=== PATIENT | female | born 1960 | race Caucasian/White ===

== ENCOUNTER → 2016-06-06 | Outpatient (CLI) | payer OTHER | END | disposition home or self-care (01) | LOC: PROCWHC3 11:12 | PROVIDERS: ATTEND Nurse Practitioner Family | DX: R50.9 Fever, unspecified (principal); R09.89 Other specified symptoms and signs involving the circulatory and respiratory systems | CPT/HCPCS: 87502 ==

== ENCOUNTER → 2016-08-14 | Outpatient (CLI) | payer OTHER ==
--- NOTE | 2016-08-15 10:30 | MM ---
Reason for exam: screening (asymptomatic). Last mammogram was performed 2 years and 1 month ago. Physical Findings: A clinical breast exam by your physician is recommended on an annual basis and results should be correlated with mammographic findings. MG Screening Mammo w CAD Bilateral CC and MLO view(s) were taken. Prior study comparison: July 05, 2014, mammogram, performed at [facility]. July 18, 2012, mammogram, performed at [facility]. There are scattered fibroglandular densities. Finding: There are typically benign round calcifications in the left breast. There is no discrete abnormality. ASSESSMENT: Benign, BI-RAD 2 RECOMMENDATION: Routine screening mammogram of both breasts in 1 year.
== END | disposition home or self-care (01) ==
LOC: RADMAMWWP 12:22
PROVIDERS: ATTEND Family Medicine
DX: Z12.31 Encounter for screening mammogram for malignant neoplasm of breast (principal)

== ENCOUNTER → 2017-09-30 | Outpatient (CLI) | payer OTHER ==
--- NOTE | 2017-10-01 13:54 | MM ---
Reason for exam: screening (asymptomatic). Last mammogram was performed 1 year and 2 months ago. Physical Findings: A clinical breast exam by your physician is recommended on an annual basis and results should be correlated with mammographic findings. MG Screening Mammo w CAD Bilateral CC and MLO view(s) were taken. Prior study comparison: August 14, 2016, bilateral MG screening mammo w CAD. July 05, 2014, mammogram, performed at [facility]. No significant changes when compared with prior studies. ASSESSMENT: Benign, BI-RAD 2 RECOMMENDATION: Routine screening mammogram of both breasts in 1 year.
== END | disposition home or self-care (01) ==
LOC: RADMAMWWP 14:53
PROVIDERS: ATTEND Family Medicine
DX: Z12.31 Encounter for screening mammogram for malignant neoplasm of breast (principal)
CPT/HCPCS: 77067

== ENCOUNTER → 2018-10-01 | Outpatient (CLI) | payer OTHER ==
--- NOTE | 2018-10-02 11:33 | MM ---
Reason for exam: screening (asymptomatic). Last mammogram was performed 1 year ago. History: Patient is postmenopausal. Physical Findings: A clinical breast exam by your physician is recommended on an annual basis and results should be correlated with mammographic findings. MG Screening Mammo w CAD Bilateral CC and MLO view(s) were taken. Prior study comparison: September 30, 2017, bilateral MG screening mammo w CAD. August 14, 2016, bilateral MG screening mammo w CAD. There are scattered fibroglandular densities. There are being appearing left calcifications similar to prior exams. No suspicious abnormality. No significant changes when compared with prior studies. ASSESSMENT: Benign, BI-RAD 2 RECOMMENDATION: Routine screening mammogram of both breasts in 1 year.
== END | disposition home or self-care (01) ==
LOC: RADMAMWWP 08:05
PROVIDERS: ATTEND Family Medicine
DX: Z12.31 Encounter for screening mammogram for malignant neoplasm of breast (principal)
CPT/HCPCS: 77067

== ENCOUNTER → 2022-10-26 | Outpatient (CLI) | payer OTHER ==
--- NOTE | 2022-10-26 14:49 | PE ---
EXAMINATION TYPE: PET CT fusion skull to thigh DATE OF EXAM: 10/26/2022 COMPARISON: Outside Chest CT August 15, 2022 HISTORY: Solitary pulmonary nodule, abnormal outside CT TECHNIQUE: Following the intravenous administration of 11.3 mCi of F-18 FDG, whole body images are p erformed from the skull base to the midthigh. Images are reviewed on the computer in the coronal, ax ial, and sagittal planes. Reconstructed rotating images are created on independent workstation and r eviewed on the computer. A localization and attenuation correction CT is performed in conjunction w ith the PET scan. Blood glucose level was 205. SCAN: Initial Scan FINDINGS: Slightly suboptimal study due to elevated blood glucose value. SKULL BASE AND NECK: No areas of abnormal hypermetabolic uptake. CHEST, MEDIASTINUM, AND HILAR REGION: Persistent right upper lung pulmonary nodule measuring 1.9 x 1. 8 cm axial image 57 with adjacent posterior pleural smaller nodule or nodular thickening shows mild h ypermetabolic uptake, max SUV is 3.09. Slightly prominent 1.8 x 1.3 cm subcarinal lymph node axial image 72 shows no abnormal hypermetabolic uptake. Chronic consolidation/atelectasis in the lingula is redemonstrated. No additional areas of a bnormal hypermetabolic uptake noted. ABDOMEN AND PELVIS: No hypermetabolic adrenal masses. Normal excretion. No areas of abnormal hypermet abolic uptake. OSSEOUS STRUCTURES: No areas of abnormal hypermetabolic uptake. OTHER CT: Prominent pulmonary arteries suggesting underlying pulmonary artery hypertension. Ordinary artery calcification is redemonstrated which is noted marker for underlying coronary artery disease. Cholecystectomy clips are redemonstrated. A few distal colonic diverticula are seen. Small Uterine fi broid suspected axial image 191. IMPRESSION: Mild hypermetabolic uptake in the 1.9 cm right upper lobe pulmonary nodule could reflect neoplasm. No hypermetabolic adenopathy or metastatic disease seen. Consider tissue sampling and/or [place] rgical referral.
== END | disposition home or self-care (01) ==
LOC: RADPETMAIN 07:15
PROVIDERS: ATTEND Internal Medicine Critical Care Medicine
DX: R91.1 Solitary pulmonary nodule (principal)
CPT/HCPCS: 78815; A9552

== ENCOUNTER 2022-11-08 12:49 | Day surgery (SDC) | payer OTHER ==
[~2022-11-08 12:49] MED LIST: LACTATED RINGERS 1,000 ML IV SCH
--- NOTE | 2022-11-08 13:23 | CT ---
EXAMINATION TYPE: CT chest wo con DATE OF EXAM: 11/08/2022 COMPARISON: 10/26/2022, 08/15/2022 HISTORY: Ion bronchoscopy. CT DLP: 895.3 mGycm. Automated Exposure Control for Dose Reduction was Utilized. TECHNIQUE: CT scan of the thorax is performed without IV contrast. FINDINGS: LUNGS: The lungs are grossly clear, there is no concerning consolidative pneumonia identified. Ther e is no pleural effusion or pneumothorax seen. The tracheobronchial tree is patent. There is a spiculated suspicious mass right upper lobe measuring 1.9 x 1.5 cm. Diffuse centrilobular emphysema noted. There is areas of subsegmental consolidation in the anterior portion of the lingular segment left upper lobe may be on the basis of atelectasis correlate clinically to exclude a pneumon ia. There is a 2 mm nodule axial image 144 series 4. There is mild left basilar bronchiectasis. No sizabl e pleural effusion or pneumothorax. MEDIASTINUM: Lack of IV contrast is noted to limit evaluation for mediastinal and especially hilar ad enopathy. There are no definitive greater than 1 cm hilar or mediastinal lymph nodes. Less than 1 cm lymph nodes are seen along the left axilla and lateral margin of the left breast. These are stable r elative to recent PET scan. There is a trace of pericardial fluid and there is pericardial lipomatosi s. Coronary artery dense calcification seen. Atherosclerotic change of the aorta with no evidence of aneurysm. OTHER: There is hypertrophic and degenerative changes of spine. Stable hepatomegaly and postcholecyst ectomy changes. Mild thickening of left adrenal gland is unchanged.. IMPRESSION: 1. Spiculated suspicious 1.9 x 1.5 cm nodule right upper lobe is stable relative to recent PET scan. 2. Diffuse centrilobular emphysema. 3. Stable consolidation in the left upper lobe unchanged most likely on the basis of chronic atelecta sis.
[2022-11-08] MEDS ORDERED: NEOSTIGMINE 1 MG/ML 10 ML VIAL ONE (14:30)
[2022-11-08] MEDS ORDERED: SUCCINYLCHOLINE CHLORIDE 200 MG/10 ML VIAL IV ONE (14:30)
[2022-11-08] MEDS ORDERED: ROCURONIUM 10 MG/ML (5 ML VIAL) IV ONE (14:30)
[2022-11-08] MEDS ORDERED: GLYCOPYRROLATE 0.2 MG/ML 2 ML VIAL ONE (14:30)
[2022-11-08] MEDS ORDERED: fentaNYL (PF) 50 MCG/ML 2 ML AMP ONE (14:30)
[2022-11-08] MEDS ORDERED: PHENYLEPHRINE-0.9% NACL SYG 1,000 MCG/10 ML SYRINGE ONE (14:30)
[2022-11-08] MEDS ORDERED: LIDOCAINE 2% INJ 20 MG/ML (2 ML VIAL) ONE (14:30)
[2022-11-08] MEDS ORDERED: PROPOFOL 10 MG/ML 20 ML VIAL IV ONE (14:30)
[2022-11-08] MEDS ORDERED: MIDAZOLAM 2 MG/2 ML VIAL ONE (14:30)
[2022-11-08] MEDS ORDERED: SODIUM CHLORIDE 0.9% 500 ML 500 ML IV ONE ×2 (15:45)
[2022-11-08 16:21] VITALS: TEMP 97.3
--- NOTE | 2022-11-08 16:26 | P.PCN ---
Date of Procedure: 11/08/22 Operative Findings: Date of Procedure: 11/08/22 Description of Procedure: Preoperative Diagnosis: Right upper lobe mass Postoperative Diagnosis: Right upper lobe mass Procedure(s) Performed: Flexible bronchoscopy Robotic-assisted bronchoscopy and addition to radial ultrasound evaluation of the lung mass Robotic-assisted test monitor needle aspirate, transbronchial biopsies, transbronchial brushing of the right upper lobe mass in addition to a bronchioloalveolar lavage Anesthesia: ASHLYA Surgeon: Iraida Reza Estimated Blood Loss (ml): 0 Pathology: other Condition: stable Disposition: same day Operative Findings: A physical exam was performed. Informed consent was obtained from the patient after explaining all the risks (pneumothorax, life threatening bleeding, infection and adverse effects due to medications), benefits and alternatives to the procedure which the patient appeared to understand and so stated. The patient was connected to the monitoring devices. General anesthesia was induced and the patient was intubated by anesthesia. A final timeout was performed and the procedure confirmed by the attending staff bronchoscopist. The bronchoscope was inserted and the airway examined. The flexible bronchoscope was removed and the robotic bronchoscope was inserted. Registration was completed. I next guided the robotic bronchoscope using the navigation system into the right upper lobe apical segment. Once in proper position, the bronchoscope was frozen. The radial EBUS probe was placed through the bronchoscope and confirmed abnormal u/s images vs normal lung. A needle was placed through the working channel and under fluoroscopic guidance, we sampled the area thought to have the mass twice. We then used a cloud biopsy pattern with ultrasound confirmation for 2 additional passes with the needle. U/S evaluation was then used to reconfirm location. Forceps were next introduced through working channel and extended the appropriate distance and 3 transbronchial biopsies were performed using fluoroscopic guidance. The u/s probe was then reinserted to confirm location. When confirmed this process was repeated for a total of 6 transbronchial biopsies. After reassessment with EBUS, a brush was placed through the extendable working channel for 1 pass with fluoroscopic guidance. U/S evaluation was then used to confirm location. 40ml of saline was then instilled into the area of the lesion. The robotic bronchoscope was removed and the airway inspected with a flexible bronchoscope and 10 ml of effluent from the BAL was collected. The aspirate was bloody and ultimately declotted and based on that, the sample was discarded. Fluoroscopic check for pneumothorax was negative upon completion of the procedure. There was 0 ml blood loss with the procedure. FINDINGS: 1.The airways appeared normal 2 Successful navigation, ultrasonographic identification, and biopsies of right upper lobe mass 3.The the radial ultrasound view was (Concentric/Eccentric)}. RECOMMENDATIONS: Await pathology and cytology results The referring physician will be alerted to the results when available. The patient was advised to follow up with the referring physician with the biopsy results Patient will be called with results.
[2022-11-08 16:31] LABS: Glucose,Whole Blood 146 mg/dL (70-110)
--- NOTE | 2022-11-08 17:06 | XR ---
EXAMINATION: XR chest 1V portable DATE AND TIME: 11/08/2022 4:38 PM CLINICAL INDICATION: Ion Bronch post op TECHNIQUE: Portable AP semiupright radiograph COMPARISON: CT 11/08/2022 at 12:55 PM FINDINGS: The known right apical spiculated mass is redemonstrated. There are scattered ill-defined opacities t hroughout the lungs, nonspecific. There is no pneumothorax. Pleural-parenchymal left anterior lateral hemithorax changes redemonstrated . No evident pleural effusions. The cardiac silhouette is enlarged, stable. The skeletal structures and soft tissues are negative for acute findings. IMPRESSION: Post bronchoscopy; upright AP portable chest radiograph.
--- NOTE | 2022-11-08 17:29 | FL ---
EXAMINATION TYPE: FL bronchoscopy DATE OF EXAM: 11/08/2022 COMPARISON: NONE HISTORY: 62-year-old female solitary pulmonary nodule TECHNIQUE: Procedural fluoroscopy FINDINGS: Fluoroscopic guidance was provided during procedure performed by Dr. Reza. A total of 7 minutes 37 seconds of fluoroscopic time was utilized during the procedure and 1 spot images was ac quired. Total dose area product (DAP) in uGy*m?, mGy*cm? (or similar): 17.4. IMPRESSION: As Above.
[2022-11-08 17:51] VITALS: BP 142/86; PULSE 94; RESP 20
[2022-11-09 10:27] LABS: Glucose,Whole Blood 158 mg/dL (70-110)
== END 2022-11-08 17:53 | disposition home or self-care (01) ==
LOC: ORWHC2ENDO 12:49
PROVIDERS: ATTEND Internal Medicine Critical Care Medicine
DX: C34.11 Malignant neoplasm of upper lobe, right bronchus or lung (principal); J44.9 Chronic obstructive pulmonary disease, unspecified; E78.5 Hyperlipidemia, unspecified; F41.9 Anxiety disorder, unspecified; E11.9 Type 2 diabetes mellitus without complications; K21.9 Gastro-esophageal reflux disease without esophagitis; Z98.890 Other specified postprocedural states; Z79.899 Other long term (current) drug therapy
CPT/HCPCS: 31628; 88108; 88305; 88342; 88341; 71045; 71250; 31625; 31633; 31623; 31624; J2250; J0330; J2710; J3010; J2370; J2704; J2001; S2900

== ENCOUNTER 2022-11-22 05:35 | Inpatient (IN) | payer OTHER ==
[2022-11-22] MEDS ORDERED: ONDANSETRON 4 MG/2 ML VIAL ONE (06:20)
[2022-11-22] MEDS ORDERED: LACTATED RINGERS 1,000 ML IV ONE ×3 (06:20→09:03)
[2022-11-22] MEDS ORDERED: LIDOCAINE 1% (10MG/ML) FOR IV START INTRADERMA ONE ×2 (06:20→06:30)
[2022-11-22 06:29] LABS: Glucose,Whole Blood 180 mg/dL (70-110)
[2022-11-22] MEDS ORDERED: ONDANSETRON 4 MG/2 ML VIAL IVP ONE (06:30)
[2022-11-22] MEDS ORDERED: ALBUTEROL HFA INHALER INHALATION ONE (08:00)
[2022-11-22] MEDS ORDERED: fentaNYL (PF) 50 MCG/ML 2 ML AMP ONE (08:00)
[2022-11-22] MEDS ORDERED: NEOSTIGMINE 1 MG/ML 10 ML VIAL ONE (08:00)
[2022-11-22] MEDS ORDERED: SUCCINYLCHOLINE CHLORIDE 200 MG/10 ML VIAL IV ONE (08:00)
[2022-11-22] MEDS ORDERED: ROCURONIUM 10 MG/ML (5 ML VIAL) IV ONE (08:00)
[2022-11-22] MEDS ORDERED: HYDROmorphone (PF) 1 MG/ML ONE (08:00)
[2022-11-22] MEDS ORDERED: MIDAZOLAM 2 MG/2 ML VIAL ONE (08:00)
[2022-11-22] MEDS ORDERED: PROPOFOL 10 MG/ML 20 ML VIAL IV ONE (08:00)
[2022-11-22] MEDS ORDERED: LIDOCAINE 2% INJ 20 MG/ML (2 ML VIAL) ONE (08:00)
[2022-11-22] MEDS ORDERED: GLYCOPYRROLATE 0.2 MG/ML 2 ML VIAL ONE (08:00)
[2022-11-22] MEDS ORDERED: KETAMINE 10 MG/ML 20 ML VIAL ONE (08:00)
[2022-11-22] MEDS ORDERED: BUPIVACAINE (PF) 0.5% 30 ML VIAL SQ ONE ×2 (09:00→10:55)
[2022-11-22] MEDS ORDERED: DEXTROSE 50% SYRINGE 50 ML IVP PRN ×2 (11:03)
[2022-11-22 11:38] LABS: Glucose,Whole Blood 255 mg/dL (70-110)
[2022-11-22] MEDS ORDERED: INSULIN ASPART (NovoLOG) 100 UNIT/ML VIAL SQ ONE (11:58)
[2022-11-22] MEDS ORDERED: HYDROmorphone 0.5 MG/0.5 ML SYRINGE IVP ONE (12:08)
--- NOTE | 2022-11-22 12:31 | P.OP ---
Date of Procedure: 11/22/22 Preoperative Diagnosis: Lung Cancer Postoperative Diagnosis: Same Procedure(s) Performed: 1. Bronchoscopy 2. Right robotic assisted thorascopic surgery with wedge resection of right upper lobe mass 3. Mediastinal lymph node dissection 4. Intercostal nerve block - 2 levels. Anesthesia: GETA Surgeon: Robert Blas Pathology: other (RUL wedge, Stations 4R, 7 and 8R.) Condition: stable Disposition: PACU Indications for Procedure: This patient is a 62 year-old female who is an active smoker who was found to have a 1.9cm RUL mass on a CT scan of the chest that was done for bronchitis. Further work-up including biopsy of the mass revealed NSCLC. EBUS was attempted but no discernable nodes were found for biopsy. However, given her very borderline PFT's and smoking status, sub-lobar resection with MLND was recommended. Operative Findings: Thickened fibrotic right lung. + palpable mass in wedge resection specimen. Description of Procedure: The patient underwent arterial line in the pre-operative suite. She was brought back to the operating room and placed in the supine position. She underwent general anesthesia and she was intubated with a left sided PREMA. Bronchoscopy was performed to confirm tube placement and for diagnostic purposes. Evaluation of the airway revealed moderate secretions without any luminal irregularities bilaterally. The patient was then positioned in the the left lateral decubitus position and the right lung was isolated. The right chest was prepped and draped in the usual sterile fashion. I made an 8cm incision in the mid-axillary line 9th ICS. The 8mm robotic trocar was inserted and entry into the chest cavity was confirmed. The right thorax was insufflated to 10mm hg and two additional 12mm ports were placed in the 9 ICS 10cm away from the first port. Lastly another 8mm port was placed in the 8th ICS posteriorly. Intercostal rib block was performed under vision in both of these spaces. The right lung was heavily diseased and the mass was easily identified at the apex. The [employer] robot was docked. I began by taking down the inferior pulmonary ligament using bipolar cautery. This was carried posteriorly along the mediastinal pleura. Level 7 and 8 nodes were harvested here. Next the space above the azygous vein was opened and level 4R lymph node was harvested. There were no discernable level 9 or 10 nodes. Next the robotic green load was used on the stapler to start the apical wedge resection. At attempt was made to continue the wedge with a black load on the robotic stapler however the lung tissue was too thick to fire despite pre-conditioning with a lung clamp. At this time, the robot was un-docked and the wedge was completed using an endo-SHANNA stapler using serial firings of the re-inforced black loads. The specimen was placed in a retrieval bag and the removed. The right chest was irrigated and the right lung was re-inflated after a 28F chest tube was inserted via the anterior most incision. All incisions were closed in layers of vicryl and the patient was extubated.
--- NOTE | 2022-11-22 12:32 | XR ---
EXAMINATION TYPE: XR chest 1V portable DATE OF EXAM: 11/22/2022 Comparison: 11/08/2022 Clinical History: 62-year-old female post wedge resection Findings: Right-sided apically directed chest tube is noted. Some subcutaneous emphysema extends along the righ t chest wall. No appreciable pneumothorax. Heart remains borderline enlarged. Right paratracheal soft tissue prominence is unchanged. Ongoing pleural parenchymal opacity along the periphery of the left mid and lower lung. Some increased opacity at the periphery of the right base. Impression: Portable exam further limited by large patient body habitus. There is a right-sided chest tube. No ap preciable pneumothorax. 2. Similar right paratracheal soft tissue prominence likely in part projectional. 3. Peripheral and bibasilar opacities probably atelectasis and can be followed.
[2022-11-22] MEDS ORDERED: IPRATROPIUM-ALBUTEROL 3 ML NEB IH PRN (12:54)
[2022-11-22] MEDS ORDERED: traMADol 50 MG TAB PO PRN (12:54)
[2022-11-22] MEDS ORDERED: FLUTICASONE 50MCG/SPRAY NASAL 16GM EA NOSTRIL PRN (12:54)
[2022-11-22] MEDS ORDERED: FUROSEMIDE 10 MG/ML 4 ML VIAL IV STA (12:54)
[2022-11-22] MEDS ORDERED: ONDANSETRON 4 MG/2 ML VIAL IVP PRN (12:54)
[2022-11-22] MEDS ORDERED: LORazepam 1 MG TAB PO PRN (12:54)
[2022-11-22] MEDS ORDERED: ERGOCALCIFEROL 1,250 MCG (50,000 IU) CAPSULE PO SCH (13:00)
[2022-11-22] MEDS ORDERED: FUROSEMIDE 10 MG/ML 4 ML VIAL IV ONE (13:11)
[2022-11-22] MEDS: INSULIN ASPART (NovoLOG) 100 UNIT/ML VIAL SQ SCH ×3 (14:45→20:32)
[2022-11-22] MEDS: KETOROLAC 15 MG/ML 1 ML VIAL IVP SCH ×3 (14:46→23:42)
[2022-11-22] MEDS: IPRATROPIUM-ALBUTEROL 3 ML NEB IH SCH ×3 (14:46→21:31)
--- NOTE | 2022-11-22 15:11 | P.CNPUL ---
History of Present Illness Consult date: 11/22/22 Requesting physician: Robert Blas Reason for consult: lung mass Chief complaint: Right upper lobe mass History of present illness: This is a 62-year-old female patient with a known history of obesity, hypertension, hyperlipidemia, diabetes mellitus, anxiety, chronic obstructive pulmonary disease with an FEV1 value 50% of predicted, chronic and ongoing tobacco dependence of 50 years. She was noted to have a solitary pulmonary nodule measuring 1.9 x 1.3 cm in the right upper lobe. PET scan from 10/26/2022 revealed mild hypermetabolic uptake in the right upper lobe nodule. She did undergo bronchoscopy with biopsies on 11/08/2022 that was positive for pulmonary adenocarcinoma. She was brought in electively today 11/22/2022 for a right upper lobe wedge biopsy. She is seen on the selective care unit and consultation. She is resting comfortably in bed. Awake and alert in no acute distress. Currently maintaining O2 saturations in the 90s on 4 L/m per nasal cannula. She's afebrile. Hemodynamically stable. chest x-ray reveals right-sided chest tube in place. No appreciable pneumothorax. Peripheral and bibasilar opacities suggestive of atelectasis. Blood sugar 255. She's been initiated and DuoNeb inhalations, Singulair, cefazolin. Heparin for DVT prophylaxis. Review of Systems REVIEW OF SYSTEMS: CONSTITUTIONAL: Denies any recent significant weight loss or weight gain. EYES: Denies change in vision. EARS, NOSE, MOUTH, THROAT: Denies headaches, denies sore throat. CARDIOVASCULAR: Denies chest pain, palpitations or syncopal episodes. RESPIRATORY: Denies shortness of breath, cough, congestion or hemoptysis. GASTROINTESTINAL: Denies change in appetite, denies abdominal pain GENITOURINARY: Denies hematuria, denies infections. MUSKULOSKELETAL: Postoperative right-sided chest wall pain. INTEGUMENTARY: Denies rash, denies eczema. NEUROLOGICAL: Denies recent memory loss, no recent seizure activity. PSYCHIATRIC: Denies anxiety, denies depression. HEMATOLOGIC/LYMPHATIC: Denies anemia, denies enlarged lymph nodes. Past Medical History Past Medical History: Cancer, COPD, Diabetes Mellitus, GERD/Reflux, Hyperlipidemia, Hypertension, Skin Disorder Additional Past Medical History / Comment(s): nodult on rt lung, bx cancer , mitral valve prolapse, yeast under skin folds. uses cream after bathing. seasonal allergies. History of Any Multi-Drug Resistant Organisms: None Reported Past Surgical History: Ablation, Cholecystectomy, Tonsillectomy Additional Past Surgical History / Comment(s): blood clots on skull from hitting head against wall at age 3yr, removed, colonoscopy, Additional Past Anesthesia/Blood Transfusion Reaction / Comment(s): granddaughter woke up slowly. son had elevated BP after sinus surgery Smoking Status: Current every day smoker - Past Family History Father Family Medical History: No Reported History Medications and Allergies Home Medications Medication Instructions Recorded Confirmed Type Benazepril [Lotensin] 10 mg PO DAILY 11/07/15 11/20/22 History Ergocalciferol [Vitamin D2] 100,000 unit PO QMONTH 11/07/15 11/20/22 History Fluticasone Nasal [place] [Flonase 2 spr EA NOSTRIL DAILY PRN 11/07/15 11/20/22 History Nasal [place]] Glimepiride [Amaryl] 2 mg PO DAILY 11/07/15 11/20/22 History Nystatin 100,000Unit/gm Cream 1 applic TOPICAL QID PRN 11/07/15 11/20/22 History [Mycostatin Cream] Ondansetron Odt [Zofran Odt] 4 mg PO Q8HR PRN #12 tab 03/02/16 11/20/22 Rx LORazepam [Ativan] 1 mg PO BID PRN 11/06/22 11/20/22 History Omeprazole 20 mg PO DAILY 11/06/22 11/20/22 History Pravastatin Sodium [Pravachol] 40 mg PO DAILY 11/06/22 11/20/22 History Unk Duoneb 1 neb INHALATION QID PRN 11/06/22 11/20/22 History Montelukast [Singulair] 10 mg PO DAILY 11/20/22 11/20/22 History Allergies Allergy/AdvReac Type Severity Reaction Status Date / Time Penicillins Allergy Rash/Hives Verified 11/20/22 09:34 Physical Exam Vitals: Vital Signs Temp Pulse Resp BP BP Pulse Ox 11/22/22 13:23 69 14 150/80 94 L 11/22/22 13:03 71 14 150/74 150/70 94 L 11/22/22 12:48 95 14 157/76 93 L 11/22/22 12:33 97 14 155/71 93 L 11/22/22 12:18 91 16 148/77 148/70 96 11/22/22 12:03 92 16 160/84 165/80 96 11/22/22 11:48 90 16 162/86 155/74 96 11/22/22 11:33 93 14 159/84 153/68 93 L 11/22/22 11:18 97.1 F L 99 14 135/72 148/65 96 11/22/22 06:13 97.1 F L 94 16 128/68 92 L Intake and Output 11/22/22 11/22/22 11/22/22 06:59 14:59 22:59 Intake Total 500 2250 Output Total 140 Balance 500 2110 Intake: IV 500 2250 Output: Estimated Blood Loss 140 Other: # Voids 1 Weight 103.3 kg GENERAL EXAM: Alert, 62-year-old female, on 4 L nasal cannula, fairly comf ortable in no apparent distress. HEAD: Normocephalic. EYES: Normal reaction of pupils, equal size. NOSE: Clear with pink turbinates. THROAT: No erythema or exudates. NECK: No masses, no JVD. CHEST: No chest wall deformity. Right-sided chest tube in place to Pleur-evac and wall suction. Leak noted. LUNGS: Equal air entry with basilar crackles, diminished in the right lung. CVS: S1 and S2 normal with no audible murmur, regular rhythm. ABDOMEN: No hepatosplenomegaly, normal bowel sounds, no guarding or rigidity. SPINE: No scoliosis or deformity SKIN: No rashes CENTRAL NERVOUS SYSTEM: No focal deficits, tone is normal in all 4 extremities. EXTREMITIES: There is no peripheral edema. No clubbing, no cyanosis. Peripheral pulses are intact. Results - Laboratory Findings Abnormal lab findings: Abnormal Labs 11/22/22 11/22/22 11/22/22 06:20 06:24 11:37 POC Glucose (mg/dL) 180 H 255 H Crossmatch See Detail - Diagnostic Findings Chest x-ray: image reviewed Assessment and Plan Assessment: Right upper lobe nodule positive for pulmonary adenocarcinoma. Status post right robotic-assisted thorascopic surgery with wedge resection. Mediastinal lymph node dissection. Postoperative day #0. Chronic and ongoing tobacco dependence Chronic obstructive pulmonary disease with an FEV1 value 50% of predicted Obesity Diabetes mellitus Hypertension Hyperlipidemia Plan: The patient was seen and evaluated Chest x-ray, labs and medications reviewed Continue DuoNeb inhalations, Singulair Heparin for DVT prophylaxis Antibiotics in the form of cefazolin Encouraged increased use of the incentive spirometer Titrate the FiO2 as tolerated We will continue to follow I have personally seen and examined the patient, performed the documentation and the assessment and plan as written. Number of minutes spent on the visit: 20.
[2022-11-22] MEDS: HEPARIN SODIUM,PORCINE/PF 5,000 UNIT/0.5 ML SYRINGE SQ SCH ×2 (15:39→23:42)
[2022-11-22 16:35] LABS: Glucose,Whole Blood 182 mg/dL (70-110)
[2022-11-22] MEDS ORDERED: NYSTATIN 100,000UNIT/GM CREAM 30 GM TUBE TOPICAL PRN (17:35)
[2022-11-22] MEDS ORDERED: NYSTATIN 100,000UNIT/GM CREAM 30 GM TUBE TOPICAL SCH (18:00)
[2022-11-22 20:19] LABS: Glucose,Whole Blood 184 mg/dL (70-110)
[2022-11-22] MEDS: ACETAMINOPHEN TAB 325 MG TAB PO PRN (21:49)
--- NOTE | 2022-11-23 01:10 | CONS ---
CONSULTATION CHIEF COMPLAINT: Pulmonary nodule. HISTORY OF PRESENT ILLNESS: This is a 62-year-old female who is in for a biopsy and definitive diagnosis of right upper lobe nodule. She is a smoker. REVIEW OF SYSTEMS: She has had no symptoms. Past medical history, family history and personal and social histories revealed that she is allergic to sulfa, metformin and penicillin. She takes Ativan, montelukast, Seroquel, Ventolin, updrafts with DuoNeb p.r.n., bupropion, omeprazole, pravastatin, glimepiride, benazepril, and vitamin D. She does smoke. PHYSICAL EXAMINATION: VITAL SIGNS: Blood pressure is 132/87 with a pulse of 78, respirations of 35, and she is afebrile. GENERAL: She appeared to be overweight, in no acute distress. SKIN: Color is normal. Skin is warm, dry. LYMPH NODES: Not enlarged. HEAD, EARS, EYES, NOSE, MOUTH AND THROAT: Normal. NECK: Thyroid was not enlarged. CHEST: Clear. CARDIAC: Normal. ABDOMEN: Soft, nontender. EXTREMITIES: Normal. IMPRESSION: 1. Right upper lobe lung nodule. 2. Chronic obstructive pulmonary disease. 3. Hypertension. 4. Type 2 [id number] diabetes mellitus. RECOMMENDATIONS: None at this time. MMODL / IJN: [id number] /
[2022-11-23 06:00] LABS: Glucose,Whole Blood 186 mg/dL (70-110)
[2022-11-23] MEDS: PANTOPRAZOLE 40 MG TABLET PO SCH (06:07)
[2022-11-23] MEDS: INSULIN ASPART (NovoLOG) 100 UNIT/ML VIAL SQ SCH ×4 (06:08→22:13)
[2022-11-23] MEDS: KETOROLAC 15 MG/ML 1 ML VIAL IVP SCH ×3 (06:08→17:10)
[2022-11-23] MEDS: GLIMEPIRIDE 2 MG TAB PO SCH (08:18)
[2022-11-23] MEDS: HEPARIN SODIUM,PORCINE/PF 5,000 UNIT/0.5 ML SYRINGE SQ SCH ×2 (08:19→17:24)
[2022-11-23] MEDS: MONTELUKAST 10 MG TAB PO SCH (08:19)
[2022-11-23] MEDS: PRAVASTATIN SODIUM 40 MG TAB PO SCH (08:19)
[2022-11-23] MEDS: lisinopriL 10 MG TAB PO SCH (08:19)
[2022-11-23] MEDS: IPRATROPIUM-ALBUTEROL 3 ML NEB IH SCH ×4 (08:24→20:49)
--- NOTE | 2022-11-23 08:30 | XR ---
EXAMINATION TYPE: XR chest 2V DATE OF EXAM: 11/23/2022 COMPARISON: 11/22/2022 HISTORY: 62-year-old female post lung wedge resection TECHNIQUE: PA and lateral views FINDINGS: Apically directed right chest tube. Heart borderline enlarged. Similar right paratracheal density. No appreciable pneumothorax. Some opacity along the periphery of the left mid and lower lung remains un changed. IMPRESSION: Right-sided chest tube. No appreciable pneumothorax. Right paratracheal soft tissue prominence is sim ilar. Peripheral left basilar opacity also similar, probably pleural parenchymal scarring.
--- NOTE | 2022-11-23 10:26 | P.PN ---
Subjective Progress Note Date: 11/23/22 Principal diagnosis: Lung cancer, pulmonary adenocarcinoma by needle biopsy. Previous medical history of chronic ongoing tobacco dependence, COPD, hypertension, hyperlipidemia, diabetes, obesity POD #1 bronchoscopy, robotic assisted thoracoscopic surgery with wedge resection of right upper lobe mass, mediastinal lymph node dissection, intercostal nerve block at 2 levels The patient was seen and examined this morning sitting up in a recliner in the cardiac stepdown unit in no acute distress. Remains in sinus rhythm, hemodynamically stable. Remains on 4 L nasal cannula with oxygen saturation in the mid 90s. Right pleural chest tube presents to [facility] without significant drainage and no air leak present. Patient states pain is controlled on current medication regimen, denies shortness of breath, her biggest complaint is lack of sleep last night. Chest x-ray reviewed, labs pending. No other new concerns. Objective - Vital Signs Vital signs: Vital Signs Temp 97.5 F L 11/23/22 08:00 Pulse 106 H 11/23/22 08:34 Resp 18 11/23/22 08:00 BP 132/95 11/23/22 08:00 Pulse Ox 95 11/23/22 08:25 FiO2 Intake & Output 11/22/22 11/23/22 11/23/22 18:59 06:59 18:59 Intake Total 2430 Output Total 290 935 25 Balance 2140 -935 -25 Weight 104.3 kg Intake: IV 2250 Oral 180 Output: Chest Tube Drainage 50 10 25 Chest Tube Right Lateral 50 10 25 Chest Urine 100 925 Estimated Blood Loss 140 Other: Voiding Method Bedpan Toilet Toilet # Voids 1 1 - Exam CONSTITUTIONAL: Appears comfortable, cooperative, no acute distress RESPIRATORY: Lungs sounds diminished bilaterally. Respirations even, nonlabored. Currently on 4 L nasal cannula with oxygen saturation 95%. Able to achieve 1250 mL on incentive spirometry. Strong cough. CARDIOVASCULAR: S1, S2 present. Regular rate and rhythm, sinus rhythm on telemetry. Palpable peripheral pulses bilaterally. No edema present. No calf pain or tenderness noted. SCDs present. GASTROINTESTINAL: Abdomen soft, nontender, nondistended. Active bowel sounds present 4 quadrants. Tolerating some diet although dentures were taken home by her daughter GENITOURINARY: Continues to void clear, yellow urine INTEGUMENTARY: Skin is warm and dry with evidence of good perfusion. Thoracic incision well approximated and covered with dry intact dressing. NEUROLOGIC: Cranial nerves II through XII intact MUSKULOSKELETAL: Able to move all extremities, strength equal bilaterally, gait normal PSYCHIATRIC: Alert and oriented to person place and time, appropriate affect, intact judgment and insight INVASIVE LINES AND TUBES: Right pleural chest tube present to waterseal, no air leaks present, 10 mL serosanguineous drainage overnight, 100 mL since surgery - Allied health notes Allied health notes reviewed: nursing - Labs Labs: Abnormal Lab Results - Last 24 Hours (Table) 11/22/22 11/22/22 11/22/22 Range/Units 11:37 16:33 20:18 POC Glucose (mg/dL) 255 H 182 H 184 H (70-110) mg/dL 11/23/22 Range/Units 05:58 POC Glucose (mg/dL) 186 H (70-110) mg/dL - Imaging and Cardiology Chest x-ray: report reviewed, image reviewed Assessment and Plan Assessment: Lung cancer, pulmonary adenocarcinoma by needle biopsy, status post bronchoscopy, robotic assisted thoracoscopic surgery with wedge resection of right upper lobe mass, mediastinal lymph node dissection, intercostal nerve block at 2 levels Chronic ongoing tobacco dependence COPD Hypertension Hyperlipidemia Diabetes Obesity Plan: Chest tube discontinued without incident Will repeat chest x-ray in 2 hours Wean O2 as tolerated, encourage incentive spirometry use If follow-up chest x-ray stable and able to wean off oxygen will discharge to home later today versus tomorrow morning Increase activity as tolerated Pain control with current medication regimen More recommendations to follow
[2022-11-23 10:53] LABS: Basophils % (A) 0 %; Eosinophils # (A) 0.2 k/uL (0-0.7); Eosinophils % (A) 1 %; HCT 41.8 % (34.0-46.0); HGB 13.5 gm/dL (11.4-16.0); Lymphocytes # (A) 1.3 k/uL (1.0-4.8); Lymphocytes % (A) 9 %; MCHC 32.2 g/dL (31.0-37.0); MCV 86.8 fL (80.0-100.0); Mean Platelet Volume 8.2; Monocytes # (A) 0.4 k/uL (0-1.0); Monocytes % (A) 2 %; Neutrophils # (A) 12.9 k/uL (1.3-7.7); Neutrophils % (A) 87 %; Platelet Count 154 k/uL (150-450); RBC 4.81 m/uL (3.80-5.40); WBC 14.9 k/uL (3.8-10.6)
[2022-11-23 11:07] LABS: African American GFR (CKD) 76 (>60 ml/min/1.73 sqM); Anion Gap 8 mmol/L; Blood Urea Nitrogen 18 mg/dL (7-17); Calcium 8.6 mg/dL (8.4-10.2); Carbon Dioxide 25 mmol/L (22-30); Chloride 100 mmol/L (98-107); Glucose 190 mg/dL (74-99); Non-African American GFR(CKD) 66 (>60 ml/min/1.73 sqM); Potassium 4.1 mmol/L (3.5-5.1); Sodium 133 mmol/L (137-145)
--- NOTE | 2022-11-23 11:30 | P.PN ---
Subjective Progress Note Date: 11/23/22 Principal diagnosis: Lung cancer. This is a 62-year-old female patient with a known history of obesity, hypertension, hyperlipidemia, diabetes mellitus, anxiety, chronic obstructive pulmonary disease with an FEV1 value 50% of predicted, chronic and ongoing tobacco dependence of 50 years. She was noted to have a solitary pulmonary nodule measuring 1.9 x 1.3 cm in the right upper lobe. PET scan from 10/26/2022 revealed mild hypermetabolic uptake in the right upper lobe nodule. She did undergo bronchoscopy with biopsies on 11/08/2022 that was positive for pulmonary adenocarcinoma. She was brought in electively today 11/22/2022 for a right upper lobe wedge biopsy. She is seen on the selective care unit and consultation. She is resting comfortably in bed. Awake and alert in no acute distress. Currently maintaining O2 saturations in the 90s on 4 L/m per nasal cannula. She's afebrile. Hemodynamically stable. chest x-ray reveals right-sided chest tube in place. No appreciable pneumothorax. Peripheral and bibasilar opacities suggestive of atelectasis. Blood sugar 255. She's been initiated and DuoNeb inhalations, Singulair, cefazolin. Heparin for DVT prophylaxis. Progress note dated 11/23/2022. This is a patient who is postop day #1, status post wedge resection, right upper lobe, for a lesion in the right upper lobe, that was biopsied, and found to be adenocarcinoma. The patient's doing relatively well. She sitting in the chair next to the bed. Currently, the patient's on 4 L of oxygen. She's not receiving any IV fluids. Laboratory data includes a white count of 14.9, with a normal hemoglobin, hematocrit, and platelet count. Sodium 133, potassium 4.1, chlorides 100, CO2 25, BUN 18, creatinine 0.93. Chest x-ray earlier this morning, showed a right-sided chest tube. No obvious pneumothorax noted. Objective - Vital Signs Vital signs: Vital Signs Temp 97.5 F L 11/23/22 08:00 Pulse 106 H 11/23/22 08:34 Resp 18 11/23/22 08:00 BP 132/95 11/23/22 08:00 Pulse Ox 95 11/23/22 08:25 FiO2 Intake & Output 0711/23/22 11/23/22 18:59 06:59 18:59 Intake Total 2430 Output Total 290 935 25 Balance 2140 -935 -25 Weight 104.3 kg Intake: IV 2250 Oral 180 Output: Chest Tube Drainage 50 10 25 Chest Tube Right Lateral 50 10 25 Chest Urine 100 925 Estimated Blood Loss 140 Other: Voiding Method Bedpan Toilet Toilet # Voids 1 1 - Exam No acute distress, oriented 3. Currently on 4 L of oxygen. HEENT examination is grossly unremarkable. Neck supple. Full range of motion. No adenopathy thyromegaly or neck vein distention. Cardiovascular examination reveals regular rhythm rate. S1-S2 normal. No S3 or S4. No discernible murmur noted. Heart rate 100 bpm. Lungs reveal diminished breath sounds on the right side. 4 L saturation is 95%. Minimal scattered rhonchi. No wheezes or crackles. Abdomen soft bowel sounds are heard. No masses or tenderness. Extremities are intact. No cyanosis clubbing or edema. Skin is without rash or lesion. Neurologic examination is brief but nonfocal. - Labs CBC & Chem 7: 11/23/22 10:40 11/23/22 10:40 Labs: Abnormal Lab Results - Last 24 Hours (Table) 11/22/22 11/22/22 11/22/22 Range/Units 11:37 16:33 20:18 WBC (3.8-10.6) k/uL Neutrophils # (1.3-7.7) k/uL Sodium (137-145) mmol/L BUN (7-17) mg/dL Glucose (74-99) mg/dL POC Glucose (mg/dL) 255 H 182 H 184 H (70-110) mg/dL 11/23/22 11/23/22 11/23/22 Range/Units 05:58 10:40 10:40 WBC 14.9 H (3.8-10.6) k/uL Neutrophils # 12.9 H (1.3-7.7) k/uL Sodium 133 L (137-145) mmol/L BUN 18 H (7-17) mg/dL Glucose 190 H (74-99) mg/dL POC Glucose (mg/dL) 186 H (70-110) mg/dL Assessment and Plan Assessment: Right upper lobe nodule positive for pulmonary adenocarcinoma. Status post right robotic-assisted thorascopic surgery with wedge resection. Mediastinal lymph node dissection. Postoperative day #1. Chronic and ongoing tobacco dependence. Chronic obstructive pulmonary disease with an FEV1 value 50% of predicted. Obesity. Diabetes mellitus. Hypertension. Hyperlipidemia. Plan: Progress note dated 11/23/2022. The patient came to the surgery very well. She is currently on 4 L. Chest x- ray stable. Labs, x-rays, and medications are reviewed. The patient's overall prognosis remains guarded. We will continue to follow make recommendations along the way. As time. We do recommend the hourly use of incentive spirometry, and, deep breathing, coughing, and clearing of secretions. Time with Patient: Less than 30
[2022-11-23 11:41] LABS: Glucose,Whole Blood 168 mg/dL (70-110)
[2022-11-23] MEDS ORDERED: FUROSEMIDE 10 MG/ML 4 ML VIAL IV STA (11:43)
--- NOTE | 2022-11-23 13:33 | XR ---
EXAMINATION TYPE: XR chest 2V DATE OF EXAM: 11/23/2022 COMPARISON: Earlier today HISTORY: 62 year-old female post chest tube removal TECHNIQUE: PA and lateral views FINDINGS: Interval removal of the right-sided chest tube. No appreciable pneumothorax. Right paratracheal soft tissue prominence is similar. A subtle staple line is identified in this region relating to the patie nt's surgery. Mild patchy lower lung densities remain. No pleural effusion. IMPRESSION: 1. Interval removal of the right-sided chest tube. No appreciable pneumothorax. 2. Postsurgical change along the medial right upper lung with similar right paratracheal soft tissue prominence. 3. Mild patchy bibasilar opacities remain.
[2022-11-23 16:31] LABS: Glucose,Whole Blood 136 mg/dL (70-110)
[2022-11-23 20:19] LABS: Glucose,Whole Blood 165 mg/dL (70-110)
[2022-11-24] MEDS: KETOROLAC 15 MG/ML 1 ML VIAL IVP SCH ×3 (01:21→07:57)
[2022-11-24] MEDS: ACETAMINOPHEN TAB 325 MG TAB PO PRN ×2 (01:23→08:07)
[2022-11-24] MEDS: HEPARIN SODIUM,PORCINE/PF 5,000 UNIT/0.5 ML SYRINGE SQ SCH ×2 (01:24→08:07)
[2022-11-24 04:51] VITALS: RESP 18
[2022-11-24 06:21] LABS: Glucose,Whole Blood 177 mg/dL (70-110)
[2022-11-24] MEDS: PANTOPRAZOLE 40 MG TABLET PO SCH (07:00)
[2022-11-24] MEDS: INSULIN ASPART (NovoLOG) 100 UNIT/ML VIAL SQ SCH (07:00)
--- NOTE | 2022-11-24 07:16 | XR ---
EXAMINATION TYPE: XR chest 2V DATE OF EXAM: 11/24/2022 6:38 AM COMPARISON: Chest radiographs from 11/23/2022 TECHNIQUE: XR chest 2V Frontal and lateral views of the chest. CLINICAL INDICATION:Female, 62 years old with history of post lung biopsy; FINDINGS: Lungs/Pleura: No pleural effusion or pneumothorax. Bibasilar patchy airspace opacities. Pulmonary vascularity: Unremarkable. Heart/mediastinum: Right paratracheal soft tissue prominence is similar. Musculoskeletal: No acute osseous pathology. IMPRESSION: 1. Similar right paratracheal soft tissue prominence. 2. Similar mild patchy bibasilar opacities.
[2022-11-24] MEDS: PRAVASTATIN SODIUM 40 MG TAB PO SCH (08:07)
[2022-11-24] MEDS: MONTELUKAST 10 MG TAB PO SCH (08:07)
[2022-11-24] MEDS: lisinopriL 10 MG TAB PO SCH (08:07)
[2022-11-24] MEDS: GLIMEPIRIDE 2 MG TAB PO SCH (08:07)
[2022-11-24 08:13] VITALS: BP 125/86; TEMP 97.8
--- NOTE | 2022-11-24 08:14 | P.PN ---
Subjective Progress Note Date: 11/24/22 Principal diagnosis: Lung cancer, pulmonary adenocarcinoma by needle biopsy. Previous medical history of chronic ongoing tobacco dependence, COPD, hypertension, hyperlipidemia, diabetes, obesity POD #2 bronchoscopy, robotic assisted thoracoscopic surgery with wedge resection of right upper lobe mass, mediastinal lymph node dissection, intercostal nerve block at 2 levels The patient was seen and examined this morning sitting up in a recliner in the cardiac stepdown unit in no acute distress. Remains in sinus rhythm, hemodynamically stable. Remains on 1 L nasal cannula with oxygen saturation in the mid 90s. Right pleural chest tube discontinued yesterday without incident. Patient states pain is controlled on current medication regimen, denies shortness of breath. Chest x-ray reviewed, labs pending. Anticipate discharge to home today, with or without oxygen to be determined. No other new concerns. Objective - Vital Signs Vital signs: Vital Signs Temp 97.9 F 11/24/22 04:00 Pulse 100 11/24/22 04:00 Resp 18 11/24/22 04:00 BP 123/69 11/24/22 04:00 Pulse Ox 93 L 11/24/22 04:00 FiO2 Intake & Output 11/23/22 11/24/22 11/24/22 18:59 06:59 18:59 Intake Total 10 Output Total 1075 Balance -1075 10 Weight 79.7 kg Intake: IV 10 Invasive Line 2 10 Output: Chest Tube Drainage 25 Chest Tube Right Lateral 25 Chest Urine 1050 Other: Voiding Method Toilet Toilet Toilet # Voids 3 1 - Exam CONSTITUTIONAL: Appears comfortable, cooperative, no acute distress RESPIRATORY: Lungs sounds diminished bilaterally. Respirations even, nonlabored. Currently on 1 L nasal cannula with oxygen saturation 93%. Able to achieve 1500 mL on incentive spirometry. Strong cough. CARDIOVASCULAR: S1, S2 present. Regular rate and rhythm, sinus rhythm on telemetry. Palpable peripheral pulses bilaterally. No edema present. No calf pain or tenderness noted. SCDs present. GASTROINTESTINAL: Abdomen soft, nontender, nondistended. Active bowel sounds present 4 quadrants. Tolerating diet GENITOURINARY: Continues to void clear, yellow urine INTEGUMENTARY: Skin is warm and dry with evidence of good perfusion. Thoracic incision well approximated and covered with dry intact dressing. NEUROLOGIC: Cranial nerves II through XII intact MUSKULOSKELETAL: Able to move all extremities, strength equal bilaterally, gait normal PSYCHIATRIC: Alert and oriented to person place and time, appropriate affect, intact judgment and insight - Allied health notes Allied health notes reviewed: nursing - Labs CBC & Chem 7: 11/23/22 10:40 11/23/22 10:40 Labs: Abnormal Lab Results - Last 24 Hours (Table) 11/23/22 11/23/22 11/23/22 Range/Units 10:40 10:40 11:39 WBC 14.9 H (3.8-10.6) k/uL Neutrophils # 12.9 H (1.3-7.7) k/uL Sodium 133 L (137-145) mmol/L BUN 18 H (7-17) mg/dL Glucose 190 H (74-99) mg/dL POC Glucose (mg/dL) 168 H (70-110) mg/dL 11/23/22 11/23/22 11/24/22 Range/Units 16:29 20:15 06:19 WBC (3.8-10.6) k/uL Neutrophils # (1.3-7.7) k/uL Sodium (137-145) mmol/L BUN (7-17) mg/dL Glucose (74-99) mg/dL POC Glucose (mg/dL) 136 H 165 H 177 H (70-110) mg/dL - Imaging and Cardiology Chest x-ray: report reviewed, image reviewed Assessment and Plan Assessment: Lung cancer, pulmonary adenocarcinoma by needle biopsy, status post bronchos copy, robotic assisted thoracoscopic surgery with wedge resection of right upper lobe mass, mediastinal lymph node dissection, intercostal nerve block at 2 levels Chronic ongoing tobacco dependence Moderate COPD, preoperative FEV1 53% of predicted, DLCO 46% of predicted Hypertension Hyperlipidemia, treated Non-insulin dependent diabetes mellitus Obesity Plan: We will try to wean off oxygen, if unable patient may need to be discharged with oxygen for a short time period Encourage incentive spirometry use Increase activity as tolerated Pain control with current medication regimen Anticipate discharge to home today, with or without oxygen
[2022-11-24 08:29] LABS: HGB 13.1 gm/dL (11.4-16.0); MCH 28.3 pg (25.0-35.0); MCHC 32.7 g/dL (31.0-37.0); MCV 86.5 fL (80.0-100.0); Platelet Count 152 k/uL (150-450); RBC 4.63 m/uL (3.80-5.40); RDW 14.9 % (11.5-15.5); WBC 13.8 k/uL (3.8-10.6)
[2022-11-24] MEDS: IPRATROPIUM-ALBUTEROL 3 ML NEB IH SCH (08:55)
[2022-11-24 09:02] LABS: African American GFR (CKD) 74 (>60 ml/min/1.73 sqM); Anion Gap 9 mmol/L; Blood Urea Nitrogen 16 mg/dL (7-17); Calcium 9.1 mg/dL (8.4-10.2); Carbon Dioxide 29 mmol/L (22-30); Chloride 96 mmol/L (98-107); Glucose 202 mg/dL (74-99); Non-African American GFR(CKD) 64 (>60 ml/min/1.73 sqM); Potassium 4.3 mmol/L (3.5-5.1); Sodium 134 mmol/L (137-145)
[2022-11-24] MEDS ORDERED: FUROSEMIDE 10 MG/ML 4 ML VIAL IV STA (09:12)
--- NOTE | 2022-11-24 10:04 | PN ---
PROGRESS NOTE DATE OF SERVICE: 11/23/2022 CHIEF COMPLAINT: Status post right upper lobe resection. HISTORY OF PRESENT ILLNESS: This lady is awake and alert. She is not short of breath. PHYSICAL EXAMINATION: CHEST: Breath sounds are heard on both sides. CARDIAC: Normal. Chest tube is in place. IMPRESSION: Right upper lobe neoplasm. PLAN: Continue to follow for any medical issues. She is doing well. MMODL / IJN: [id number] /
--- NOTE | 2022-11-24 10:07 | CONS ---
CONSULTATION CHIEF COMPLAINT: Right upper lobe lesion. HISTORY OF PRESENT ILLNESS: This lady is admitted for elective right upper lobe resection for carcinoma. She does have a longstanding history of nicotine abuse. REVIEW OF SYSTEMS: She denies any headaches, neurologic problems, cough, hemoptysis, abdominal pain, nausea, vomiting, diarrhea, melena, urinary complaints, renal failure, etc. PAST MEDICAL HISTORY, FAMILY HISTORY, PERSONAL AND SOCIAL HISTORIES: Are all otherwise unremarkable and can be found in her admitting summary. PHYSICAL EXAMINATION: VITAL SIGNS: Blood pressure is 140/85 with a pulse of 88, respirations of 26, and she is afebrile. GENERAL: She appeared to be in no acute distress. SKIN: Color is normal. Skin is warm, dry. LYMPH NODES: Not enlarged. HEENT: Head, ears, eyes, nose, mouth and throat were normal. NECK: Veins are not distended. Thyroid is not enlarged. CHEST: Clear. CARDIAC: Normal. ABDOMEN: Soft, nontender. IMPRESSION: 1. Right upper lobe lung lesion. 2. COPD. RECOMMENDATIONS: None. MMODL / IJN: [id number] /
[2022-11-24 11:07] VITALS: PULSE 94
--- NOTE | 2022-11-24 11:47 | P.DS ---
Providers Date of admission: 11/22/22 05:35 Expected date of discharge: 11/24/22 Attending physician: Robert Blas MD Consults: 11/22/22 12:54 Consult Physician Routine Consulting Provider: Sarkis Tian Consult Reason/Comments: post wedge resection;Juaquin patient Do you want consulting provider notified?: Yes Primary care physician: Gualberto Tyler Hospital Course: FINAL DIAGNOSIS: 1. Lung cancer, pulmonary adenocarcinoma by needle biopsy 2. Chronic ongoing tobacco dependence 3. Moderate COPD, preoperative FEV1 53% of predicted, DLCO 46% of predicted 4. Hypertension 5. Hyperlipidemia, treated 6. Owz-vemoekz-rdcuradak diabetes 7. Obesity PRINCIPAL PROCEDURE: 1. Bronchoscopy 2. Robotic-assisted thoracoscopic surgery with wedge resection of right upper lobe mass 3. Mediastinal lymph node dissection 4. Intercostal nerve blocks at 2 levels HISTORY OF PRESENT ILLNESS: This is a 62-year-old female who follows outpatient with Dr. Tyler for primary care, as well as with Dr. Reza for pulmonology. This patient was noted to have a solitary pulmonary nodule measuring 1.9 x 1.3 cm in the right upper lobe on CT which was done for bronchitis. She underwent PET scan which revealed mild hypermetabolic uptake in the right upper lobe nodule. Further, she underwent bronchoscopy with biopsy which was positive for pulmonary adenocarcinoma. EBUS was attempted but no discernible nodes were found for biopsy. She was referred to Dr. Blas from cardiothoracic surgery. The patient was recommended to undergo surgical robotic-assisted thoracoscopic wedge resection of the right upper lobe mass along with mediastinal lymph node dissection. The usual perioperative course was discussed in detail with the patient and her family, all risks and benefits were explained, all questions were answered, and consent was obtained to proceed with surgery. The patient was scheduled for surgery at the earliest possible date. HOSPITAL COURSE: The patient was brought to the hospital on 11/22/22, taken to the preoperative area, prepared in the usual fashion, and subsequently taken to the operating room where Dr. Blas performed a robotic-assisted thoracoscopic wedge resection of the right upper lobe mass with mediastinal lymph node dissection. Upon completion of surgery the patient was extubated and taken to the recovery room for further monitoring. She was eventually admitted to [address] [place] [address] cardiac stepdown unit for further recovery. She had no air leak in her chest tube and it was placed to waterseal the night of surgery. The following morning chest x-ray was stable and pleural chest tube was discontinued without incident. Follow-up chest x-ray was stable. She did continue to require oxygen and was kept in the hospital for an x-ray today to wean off of oxygen. Her oxygen was eventually titrated down, she was tolerating oral diet, her pain was controlled, and she was ready to be discharged to home on postoperative day #2. She received written and verbal instruction regarding her medications, activity restrictions, signs and symptoms requiring physician notification, and follow-up appointments. Patient Condition at Discharge: Stable Plan - Discharge Summary Discharge Rx Participant: No New Discharge Prescriptions: New Acetaminophen Tab [Tylenol] 650 mg PO Q4HR PRN tab PRN Reason: Mild To Moderate Pain (1 - 6) Continue Ergocalciferol [Vitamin D2 (DRISDOL)] 100,000 unit PO QMONTH Glimepiride [Amaryl] 2 mg PO DAILY Benazepril [Lotensin] 10 mg PO DAILY Nystatin 100,000Unit/gm Cream [Mycostatin Cream] 1 applic TOPICAL QID PRN PRN Reason: Rash Fluticasone Nasal [place] [Flonase Nasal [place]] 2 spr EA NOSTRIL DAILY PRN PRN Reason: Allergy Symptoms Ondansetron Odt [Zofran ODT] 4 mg PO Q8HR PRN #12 tab PRN Reason: Nausea LORazepam [Ativan] 1 mg PO BID PRN PRN Reason: Anxiety Pravastatin Sodium [Pravachol] 40 mg PO DAILY Unk Duoneb 1 neb INHALATION QID PRN PRN Reason: Shortness Of Breath Omeprazole 20 mg PO DAILY Montelukast [Singulair] 10 mg PO DAILY Discharge Medication List Benazepril [Lotensin] 10 mg PO DAILY 11/07/15 [History] Ergocalciferol [Vitamin D2 (DRISDOL)] 100,000 unit PO QMONTH 11/07/15 [History] Fluticasone Nasal [place] [Flonase Nasal [place]] 2 spr EA NOSTRIL DAILY PRN 11/07/15 [History] Glimepiride [Amaryl] 2 mg PO DAILY 11/07/15 [History] Nystatin 100,000Unit/gm Cream [Mycostatin Cream] 1 applic TOPICAL QID PRN 11/07/15 [History] Ondansetron Odt [Zofran ODT] 4 mg PO Q8HR PRN #12 tab 03/02/16 [Rx] LORazepam [Ativan] 1 mg PO BID PRN 11/06/22 [History] Omeprazole 20 mg PO DAILY 11/06/22 [History] Pravastatin Sodium [Pravachol] 40 mg PO DAILY 11/06/22 [History] Unk Duoneb 1 neb INHALATION QID PRN 11/06/22 [History] Montelukast [Singulair] 10 mg PO DAILY 11/20/22 [History] Acetaminophen Tab [Tylenol] 650 mg PO Q4HR PRN tab 11/24/22 [Rx] Follow up Appointment(s)/Referral(s): Gualberto Tyler MD [Primary Care Provider] - As Needed Robert Blas MD [STAFF PHYSICIAN] - 12/07/22 2:45 pm Iraida Reza MD [STAFF PHYSICIAN] - 11/27/22 3:30 pm Activity/Diet/Wound Care/Special Instructions: DISCHARGE INSTRUCTIONS: 1. No driving for 2 weeks, or until physician gives their ok. 2. No lifting, pushing, or pulling more than 10 pounds for 2 weeks. The physician will advise of any restriction changes. 3. Continue pain control per as needed orders. Alternate acetaminophen (Tylenol) and ibuprofen (Motrin/Advil) for pain. 4. Continue with incentive spirometry and splinting until otherwise directed by the physician. 5. Leave chest tube dressing for 48 hours. After that, remove all dressings and shower daily. 6. Routine incision care. No powders, lotions, ointments on incisions. 7. Please call surgeon/PUBLIC RELATIONS COORDINATOR for temp greater than 101 F or purulent drainage from incisions. 8. Smoking cessation counseling and program information provided. Quitting smoking is the most important step you can take to improve your health. For additional information and assistance to quit smoking, please call the [place] tobacco quit line (2-105-GOEM-NOW/ ) or online: https: //www.[place].gov/[facility]/whoc-rx-avvyqzf/chronicdiseases/tobacco/ciw-nx-pwni-tob acco Discharge Disposition: HOME SELF-CARE
--- NOTE | 2022-11-24 13:58 | PN ---
PROGRESS NOTE DATE OF SERVICE: 11/24/2022 This is a Pulmonary/Critical Care progress note. SUBJECTIVE: This is the patient who is postop day #2, status post wedge resection of right upper lobe, for lesion in the right upper lobe, that was biopsied, the robotic bronchoscopy, and found to be adenocarcinoma. The patient was doing well today. She is on room air. She is not receiving any IV fluids. She is hoping to be discharged home. LABORATORY DATA: Today includes sodium 134, potassium 4.3, chloride 96, CO2 of 29. BUN 16 and creatinine 0.94. White count is 13.8, with a normal hemoglobin, hematocrit and platelet count. Chest x-ray shows patchy bibasilar infiltrates. PHYSICAL EXAMINATION: VITAL SIGNS: Current vital signs include temperature 97.8, heart rate 86, respiratory rate is 18, blood pressure 125/86, and room air saturations 92%. GENERAL: She appears in no acute distress. HEENT: Grossly unremarkable. NECK: Supple, full range of motion. No adenopathy. Neck veins are flat. CARDIOVASCULAR: Reveals regular rhythm and rate. S1, S2 normal. No murmur. LUNGS: Reveal a few scattered rhonchi. No wheezes or crackles. Breath sounds equal. ABDOMEN: Obese. Bowel sounds are heard. EXTREMITIES: Intact. No cyanosis, clubbing, or edema. SKIN: Without rash. NEUROLOGIC: Nonfocal. ASSESSMENT: 1. Postoperative day #2 status post wedge resection and mediastinal lymph node dissection, of a lesion, in the right upper lobe, which is positive for adenocarcinoma by robotic bronchoscopy. 2. Chronic and ongoing tobacco dependence. 3. Moderately severe to severe chronic obstructive pulmonary disease, with an FEV1 that is 50% of predicted. 4. Obesity. 5. Diabetes mellitus. 6. Hypertension. 7. Dyslipidemia. PLAN: The patient is being evaluated for possible discharge home. We will leave that up to Cardiothoracic Surgery. Labs, x-rays, and medications are reviewed. She will follow up in our office, sometime after discharge. MMODL / IJN: [id number] /
--- NOTE | 2022-11-24 14:42 | PN ---
PROGRESS NOTE DATE OF SERVICE: 11/24/2022 SUBJECTIVE: This is a 62-year-old woman who was admitted after lung cancer biopsy with complaints of nausea. The patient will be discharged today. No chest pain. No palpitations. No fever. OBJECTIVE: VITAL SIGNS: Pulse is 103, blood pressure 110/86, respirations 18. CHEST: A few scattered rhonchi. ABDOMEN: Soft. NERVOUS SYSTEM: No focal deficits. LABORATORY DATA: Reviewed. ASSESSMENT: 1. Status post needle biopsy for possible pulmonary adenocarcinoma, lung cancer. 2. Chronic obstructive pulmonary disease. 3. Nicotine dependence. 4. Hypertension. 5. Multiple medical issues. RECOMMENDATIONS: Recommend to continue current management, continue symptomatic treatment. Recommend a course of bronchodilators, closely follow with Pulmonary as well as Dr. Tyler. The rest of the recommendations per Cardiothoracic Surgery. See orders for further details. MMODL / IJN: [id number] /
== END 2022-11-24 11:17 | disposition home or self-care (01) | DRG 121 ==
LOC: 2ORMAIN 05:35 → 3SCARD 12:37
PROVIDERS: ADMIT Thoracic Surgery (Cardiothoracic Vascular Surgery); ATTEND Thoracic Surgery (Cardiothoracic Vascular Surgery)
PROC: 8E0W8CZ Robotic Assisted Procedure of Trunk Region, Via Natural or Artificial Opening Endoscopic (ICD-10-PCS; 2022-11-22)
PROC: 07B70ZX Excision of Thorax Lymphatic, Open Approach, Diagnostic (ICD-10-PCS; 2022-11-22)
PROC: 0BBC8ZX Excision of Right Upper Lung Lobe, Via Natural or Artificial Opening Endoscopic, Diagnostic (ICD-10-PCS; principal; 2022-11-22 07:30)
DX: C34.11 Malignant neoplasm of upper lobe, right bronchus or lung (principal); J44.9 Chronic obstructive pulmonary disease, unspecified; E11.9 Type 2 diabetes mellitus without complications; E66.9 Obesity, unspecified; I10 Essential (primary) hypertension; I34.1 Nonrheumatic mitral (valve) prolapse; F17.210 Nicotine dependence, cigarettes, uncomplicated; E78.5 Hyperlipidemia, unspecified; Z68.30 Body mass index [BMI] 30.0-30.9, adult; Z79.899 Other long term (current) drug therapy; Z79.84 Long term (current) use of oral hypoglycemic drugs; Z88.0 Allergy status to penicillin
CPT/HCPCS: 71045; 71046; 80048; 85025; 85027; 86850; 86900; 86901; 86920; 88305; 88307; 88313; 94640; 94760

== ENCOUNTER 2023-03-04 15:54 | Inpatient (IN) | payer OTHER ==
[2023-03-04] MEDS ORDERED: IPRATROPIUM-ALBUTEROL 3 ML NEB INHALATION STA (16:48)
--- NOTE | 2023-03-04 16:52 | ED ---
General Adult HPI - General Chief complaint: Shortness of Breath Stated complaint: Dyspnea Time Seen by Provider: 03/04/23 16:38 Source: patient, RN notes reviewed Mode of arrival: ambulatory Limitations: no limitations - History of Present Illness Initial comments: Patient is a pleasant [age]-year-old female presenting to the emergency department with concerns with shortness of breath. Onset of symptoms was a few weeks ago. Patient does have cough with thick clear sputum. No fever but has had chills. Patient did see her doctor today and was advised come to emergency department. No leg pain or leg swelling. Patient does have history of COPD. No chest pain. - Related Data Home Medications Medication Instructions Recorded Confirmed Benazepril [Lotensin] 10 mg PO DAILY 11/07/15 03/04/23 Fluticasone Nasal [place] [Flonase 2 spr EA NOSTRIL DAILY PRN 11/07/15 03/04/23 Nasal [place]] Glimepiride [Amaryl] 2 mg PO DAILY 11/07/15 03/04/23 LORazepam [Ativan] 1 mg PO BID PRN 11/06/22 03/04/23 Pravastatin Sodium [Pravachol] 40 mg PO DAILY 11/06/22 03/04/23 Montelukast [Singulair] 10 mg PO DAILY 11/20/22 03/04/23 Ipratropium-Albuterol Nebulize 3 ml INHALATION RT-QID PRN 03/04/23 03/04/23 [Duoneb 0.5 mg-3 mg/3 ml Soln] QUEtiapine [SEROquel] 100 mg PO HS 03/04/23 03/04/23 Previous Rx's Medication Instructions Recorded Budesonide/Formoterol Fumarate 1 puff INHALATION BID #1 gm 11/24/22 [Symbicort 160-4.5 Mcg Inhaler] Allergies Allergy/AdvReac Type Severity Reaction Status Date / Time Penicillins Allergy Rash/Hives/ Verified 03/04/23 17:53 swelling Review of Systems ROS Statement: Those systems with pertinent positive or pertinent negative responses have been documented in the HPI. ROS Other: All systems not noted in ROS Statement are negative. Constitutional: Reports: chills. Denies: fever Eyes: Denies: eye pain ENT: Denies: ear pain Respiratory: Reports: as per HPI, cough, dyspnea Cardiovascular: Denies: chest pain Endocrine: Denies: fatigue Gastrointestinal: Reports: abdominal pain (Some right upper abdominal discomfort) Genitourinary: Denies: dysuria Musculoskeletal: Denies: back pain Skin: Denies: rash Neurological: Denies: weakness Past Medical History Past Medical History: Cancer, COPD, Diabetes Mellitus, GERD/Reflux, Hyperlipidemia, Hypertension, Skin Disorder Additional Past Medical History / Comment(s): nodult on rt lung, bx cancer , mitral valve prolapse, yeast under skin folds. uses cream after bathing. seasonal allergies. History of Any Multi-Drug Resistant Organisms: None Reported Past Surgical History: Ablation, Cholecystectomy, Tonsillectomy Additional Past Surgical History / Comment(s): blood clots on skull from hitting head against wall at age 3yr, removed, colonoscopy, Additional Past Anesthesia/Blood Transfusion Reaction / Comment(s): granddaughter woke up slowly. son had elevated BP after sinus surgery Past Psychological History: Anxiety, Depression Smoking Status: Current every day smoker Past Alcohol Use History: None Reported Past Drug Use History: None Reported - Past Family History Father Family Medical History: No Reported History General Exam Limitations: no limitations General appearance: alert, in no apparent distress Head exam: Present: normocephalic Eye exam: Present: normal appearance Neck exam: Present: normal inspection Respiratory exam: Present: wheezes, decreased breath sounds Cardiovascular Exam: Present: regular rate, normal rhythm Expanded Peripheral pulses: 2+: Dorsalis Pedis (R), Dorsalis Pedis (L) GI/Abdominal exam: Present: soft. Absent: distended, tenderness, pulsatile mass Extremities exam: Absent: pedal edema, calf tenderness Back exam: Present: normal inspection Neurological exam: Present: alert Psychiatric exam: Present: normal affect, normal mood Skin exam: Present: normal color Course Vital Signs 03/04/23 03/04/23 03/04/23 16:07 16:45 17:13 Temperature 98.5 F Pulse Rate 100 97 95 Respiratory 20 18 Rate Blood Pressure 146/86 125/95 O2 Sat by Pulse 93 L 96 Oximetry 03/04/23 17:21 Temperature Pulse Rate 96 Respiratory Rate Blood Pressure O2 Sat by Pulse Oximetry EKG Findings - EKG Results: EKG: interpreted by ERMD, sinus rhythm, normal axis, normal QRS, normal ST/T Medical Decision Making - Medical Decision Making Was pt. sent in by a medical professional or institution (RUPERT Pinto, SENIOR STAFF CONSULTANT, urgent care, hospital, or snf...) When possible be specific @ -Patient was sent in by Dr. Mckeon office Did you speak to anyone other than the patient for history (EMS, parent, family, police, friend...)? What history was obtained from this source @ -Family is present and helps private history including onset of symptoms Did you review nursing and triage notes (agree or disagree)? Why? @ -I reviewed and agree with nursing and triage notes Were old charts reviewed (outside hosp., previous admission, EMS record, old EKG, old radiological studies, urgent care reports/EKG's, snf records)? Report findings @ -No old charts were reviewed Differential Diagnosis (chest pain, altered mental status, abdominal pain women, abdominal pain men, vaginal bleeding, weakness, fever, dyspnea, syncope, headache, dizziness, GI bleed, back pain, seizure, CVA, palpatations, mental health, musculoskeletal)? @ -Differential Dyspnea: Coronary syndrome, arrhythmia, tamponade, asthma, COPD, pulmonary embolism, pneumonia, pneumothorax, pulmonary effusion, anaphylaxis, diabetic ketoacidosis, flailed chest, pulmonary contusion, diaphragmatic rupture, anemia, ne uromuscular, this is not meant to be an all-inclusive list. EKG interpreted by me (3pts min.). @ -As above X-rays interpreted by me (1pt min.). @ -Chest x-ray shows mild diffuse interstitial infiltrate CT interpreted by me (1pt min.). @ -None done U/S interpreted by me (1pt. min.). @ -None done What testing was considered but not performed or refused? (CT, X-rays, U/S, labs)? Why? @ -None What meds were considered but not given or refused? Why? @ -None Did you discuss the management of the patient with other professionals (professionals i.e. RUPERT Pinto, SENIOR STAFF CONSULTANT, lab, RT, psych nurse, social welfare research worker, medical records administrator, teacher, correctional officer captain, leather case finisher)? Give summary @ -Dr. Mckeon paged for admission of this patient Was smoking cessation discussed for >3mins.? @ -No Was critical care preformed (if so, how long)? @ -31 minutes critical care time Were there social determinants of health that impacted care today? How? (Homelessness, low income, unemployed, alcoholism, drug addiction, transportation, low edu. Level, literacy, decrease access to med. care, alf, rehab)? @ -No Was there de-escalation of care discussed even if they declined (Discuss DNR or withdrawal of care, Hospice)? DNR status @ -No What co-morbidities impacted this encounter? (DM, HTN, Smoking, COPD, CAD, Cancer, CVA, ARF, Chemo, Hep., AIDS, mental health diagnosis, sleep apnea, morbid obesity)? @ -None Was patient admitted / discharged? Hospital course, mention meds given and route, prescriptions, significant lab abnormalities, going to OR and other per tinent info. @ -Patient reevaluated. Patient is updated on results and plan. Patient will be admitted with IV antibiotics. Patient states she does see Dr. Reza for pulmonary and he will be placed on consult. Admission orders written. There is concern for sepsis diagnosed at 1900. Blood culture and lactic acid and IV antibiotics will be started. Undiagnosed new problem with uncertain prognosis? @ -No Drug Therapy requiring intensive monitoring for toxicity (Heparin, Nitro, Insulin, Cardizem)? @ -No Were any procedures done? @ -No Diagnosis/symptom? @ -Pneumonia, COPD Acute, or Chronic, or Acute on Chronic? @ -Acute, acute on chronic Uncomplicated (without systemic symptoms) or Complicated (systemic symptoms)? @ -default Side effects of treatment? @ -No Exacerbation, Progression, or Severe Exacerbation? @ -COPD exacerbation Poses a threat to life or bodily function? How? (Chest pain, [place], ND, pneumonia, PE, COPD, DKA, ARF, appy, cholecystitis, CVA, Diverticulitis, Homicidal, Suicidal, threat to staff... and all critical care pts) @ -No - Lab Data Result diagrams: 03/04/23 16:53 03/04/23 16:53 Lab Results 03/04/23 03/04/23 03/04/23 Range/Units 16:53 16:53 16:53 WBC 12.9 H (3.8-10.6) k/uL RBC 5.67 H (3.80-5.40) m/uL Hgb 16.0 (11.4-16.0) gm/dL Hct 48.4 H (34.0-46.0) % MCV 85.2 (80.0-100.0) fL MCH 28.2 (25.0-35.0) pg MCHC 33.1 (31.0-37.0) g/dL RDW 14.9 (11.5-15.5) % Plt Count 229 (150-450) k/uL MPV 8.5 Neutrophils % 75 % Lymphocytes % 17 % Monocytes % 4 % Eosinophils % 3 % Basophils % 0 % Neutrophils # 9.7 H (1.3-7.7) k/uL Lymphocytes # 2.2 (1.0-4.8) k/uL Monocytes # 0.5 (0-1.0) k/uL Eosinophils # 0.3 (0-0.7) k/uL Basophils # 0.0 (0-0.2) k/uL PT 10.9 (10.0-12.5) sec INR 1.0 (<1.2) APTT 25.2 (22.0-30.0) sec D-Dimer 0.34 (<0.60) mg/L FEU Sodium 138 (137-145) mmol/L Potassium 4.1 (3.5-5.1) mmol/L Chloride 102 (98-107) mmol/L Carbon Dioxide 23 (22-30) mmol/L Anion Gap 13 mmol/L BUN 14 (7-17) mg/dL Creatinine 0.88 (0.52-1.04) mg/dL Est GFR (CKD-EPI)AfAm 81 (>60 ml/min/1.73 sqM) Est GFR (CKD-EPI)NonAf 70 (>60 ml/min/1.73 sqM) Glucose 113 H (74-99) mg/dL Plasma Lactic Acid Neel (0.7-2.0) mmol/L Calcium 9.8 (8.4-10.2) mg/dL Magnesium 2.0 (1.6-2.3) mg/dL Total Bilirubin 0.6 (0.2-1.3) mg/dL AST 26 (14-36) U/L ALT 38 H (4-34) U/L Alkaline Phosphatase 119 (38-126) U/L Troponin I (0.000-0.034) ng/mL NT-Pro-B Natriuret Pep 150 pg/mL Total Protein 8.0 (6.3-8.2) g/dL Albumin 4.4 (3.5-5.0) g/dL Influenza Type A (PCR) (Not Detectd) Influenza Type B (PCR) (Not Detectd) RSV (PCR) (Not Detectd) SARS-CoV-2 (PCR) (Not Detectd) 03/04/23 03/04/23 03/04/23 Range/Units 16:53 16:53 16:53 WBC (3.8-10.6) k/uL RBC (3.80-5.40) m/uL Hgb (11.4-16.0) gm/dL Hct (34.0-46.0) % MCV (80.0-100.0) fL MCH (25.0-35.0) pg MCHC (31.0-37.0) g/dL RDW (11.5-15.5) % Plt Count (150-450) k/uL MPV Neutrophils % % Lymphocytes % % Monocytes % % Eosinophils % % Basophils % % Neutrophils # (1.3-7.7) k/uL Lymphocytes # (1.0-4.8) k/uL Monocytes # (0-1.0) k/uL Eosinophils # (0-0.7) k/uL Basophils # (0-0.2) k/uL PT (10.0-12.5) sec INR (<1.2) APTT (22.0-30.0) sec D-Dimer (<0.60) mg/L FEU Sodium (137-145) mmol/L Potassium (3.5-5.1) mmol/L Chloride (98-107) mmol/L Carbon Dioxide (22-30) mmol/L Anion Gap mmol/L BUN (7-17) mg/dL Creatinine (0.52-1.04) mg/dL Est GFR (CKD-EPI)AfAm (>60 ml/min/1.73 sqM) Est GFR (CKD-EPI)NonAf (>60 ml/min/1.73 sqM) Glucose (74-99) mg/dL Plasma Lactic Acid Neel 0.9 (0.7-2.0) mmol/L Calcium (8.4-10.2) mg/dL Magnesium (1.6-2.3) mg/dL Total Bilirubin (0.2-1.3) mg/dL AST (14-36) U/L ALT (4-34) U/L Alkaline Phosphatase (38-126) U/L Troponin I <0.012 (0.000-0.034) ng/mL NT-Pro-B Natriuret Pep pg/mL Total Protein (6.3-8.2) g/dL Albumin (3.5-5.0) g/dL Influenza Type A (PCR) Not Detected (Not Detectd) Influenza Type B (PCR) Not Detected (Not Detectd) RSV (PCR) Not Detected (Not Detectd) SARS-CoV-2 (PCR) Not Detected (Not Detectd) Critical Care Time Critical Care Time: Yes Total Critical Care Time: 31 Disposition Clinical Impression: Acute exacerbation of chronic obstructive pulmonary disease, Atypical pneumonia Disposition: ADMITTED IP TO THIS [facility] Condition: Serious Is patient prescribed a controlled substance at d/c from ED?: No Referrals: Gualberto Tyler MD [Primary Care Provider] - 1-2 days Time of Disposition: 19:02
[2023-03-04 17:37] LABS: Basophils % (A) 0 %; Eosinophils # (A) 0.3 k/uL (0-0.7); Eosinophils % (A) 3 %; HCT 48.4 % (34.0-46.0); Lymphocytes # (A) 2.2 k/uL (1.0-4.8); Lymphocytes % (A) 17 %; MCH 28.2 pg (25.0-35.0); MCHC 33.1 g/dL (31.0-37.0); MCV 85.2 fL (80.0-100.0); Mean Platelet Volume 8.5; Monocytes # (A) 0.5 k/uL (0-1.0); Monocytes % (A) 4 %; Neutrophils # (A) 9.7 k/uL (1.3-7.7); Neutrophils % (A) 75 %; Platelet Count 229 k/uL (150-450); RBC 5.67 m/uL (3.80-5.40); RDW 14.9 % (11.5-15.5); WBC 12.9 k/uL (3.8-10.6)
[2023-03-04 17:56] LABS: ALT 38 U/L (4-34); AST 26 U/L (14-36); African American GFR (CKD) 81 (>60 ml/min/1.73 sqM); Albumin 4.4 g/dL (3.5-5.0); Alkaline Phosphatase 119 U/L (38-126); Anion Gap 13 mmol/L; Blood Urea Nitrogen 14 mg/dL (7-17); Calcium 9.8 mg/dL (8.4-10.2); Carbon Dioxide 23 mmol/L (22-30); Chloride 102 mmol/L (98-107); Glucose 113 mg/dL (74-99); Non-African American GFR(CKD) 70 (>60 ml/min/1.73 sqM); Potassium 4.1 mmol/L (3.5-5.1); Sodium 138 mmol/L (137-145); Total Bilirubin 0.6 mg/dL (0.2-1.3)
[2023-03-04 17:58] LABS: Partial Thromboplastin Time 25.2 sec (22.0-30.0); Prothrombin Time 10.9 sec (10.0-12.5)
[2023-03-04 18:04] LABS: NT-Pro-B-Type Natriuretic Pept 150 pg/mL
--- NOTE | 2023-03-04 18:05 | XR ---
EXAMINATION TYPE: XR chest 2V DATE OF EXAM: 03/04/2023 COMPARISON: 11/24/2022 INDICATION: Difficulty breathing abdomen pain TECHNIQUE: Frontal and lateral views of the chest are obtained. FINDINGS: The heart size is normal. The pulmonary vasculature is normal. Subtle scattered infiltrates are through the right lung including the right upper lobe and right lowe r lobes. Minimal infiltrate may be at the left base. Findings are nonspecific. Consider atypical pneu monia. Subsegmental atelectasis could be considered. IMPRESSION: 1. Scattered nonspecific infiltrates right upper and lower lung ralph and left lower lung field. Cor relate for atypical pneumonia
[2023-03-04] MEDS ORDERED: AZITHROMYCIN 500 MG in SODIUM CHLORIDE 0.9% 250 ML IVPB STA (19:03)
[2023-03-04] MEDS ORDERED: IPRATROPIUM-ALBUTEROL 3 ML NEB INHALATION PRN (19:03)
[2023-03-04] MEDS ORDERED: PNEUMONIA PROTOCOL UTILIZED 1 EACH MISC PO PRN (19:03)
[2023-03-04] MEDS ORDERED: ACETAMINOPHEN TAB 500 MG TAB PO STA (19:40)
[2023-03-04] MEDS: IPRATROPIUM-ALBUTEROL 3 ML NEB INHALATION SCH (19:52)
[2023-03-05] MEDS: methylPREDNISolone SOD SUCCI 125 MG/2 ML VIAL IV SCH ×4 (00:21→17:05)
--- NOTE | 2023-03-05 03:22 | P.CNPUL ---
History of Present Illness Consult date: 03/05/23 Requesting physician: Alfonzo Caal Reason for consult: COPD Chief complaint: Shortness of breath and cough History of present illness: I am seeing this patient in consultation today 03/05/2023 for suspected COPD exacerbation and possible community acquired pneumonia. Patient is a 62-year-old white female past medical history significant for recent diagnosis of pulmonary adenocarcinoma status/post right upper lobe wedge resection on 11/22/2022. She also has moderate to severe chronic obstructive pulmonary disease with an FEV1 50% of predicted, hypertension, hyperlipidemia, diabetes mellitus, obesity, and quit smoking cigarettes this year. Patient presented to emergency room yesterday afternoon complaining of shortness of breath that started approximately 2 weeks ago. She's had a intermittent cough with minimal this clear sputum production. No fever. Denies sick contacts. Denies any chest pain, heart palpitations, syncope, lower extremity swelling. Chest x-ray on arrival demonstrated scattered nonspecific infiltrates within the right upper and lower lung ralph and left lower lobe. Negative for influenza, RSV, COVID- 19. She is currently sitting up in bed, on room air, in no acute distress. CBC on arrival showed some mild leukocytosis with a WBC count of 12.9, hemoglobin 16, hematocrit 40.4, platelets 229. D-dimer 0.34. BMP unremarkable. Troponin less than 0.12. NT proBNP not significant elevated. Patient is empirically covered on azithromycin and Rocephin. Is also been started on a combination of DuoNeb's and IV Solu-Medrol. Appears hemodynamically stable. Review of Systems REVIEW OF SYSTEMS: CONSTITUTIONAL: Denies any recent significant weight loss or weight gain. EYES: Denies change in vision. EARS, NOSE, MOUTH, THROAT: Denies headaches, denies sore throat. CARDIOVASCULAR: Denies chest pain, palpitations or syncopal episodes. RESPIRATORY: Admits shortness of breath, minimally productive cough, chest congestion. Denies any chest pain, hemoptysis GASTROINTESTINAL: Denies change in appetite, abdominal pain, nausea and vomiting. Admits occasional diarrhea. Denies bloody bowel movements or melena GENITOURINARY: Denies hematuria, denies infections. MUSKULOSKELETAL: Denies pain, denies swelling. INTEGUMENTARY: Denies rash, denies eczema. NEUROLOGICAL: Denies recent memory loss, no recent seizure activity. PSYCHIATRIC: Denies anxiety, denies depression. HEMATOLOGIC/LYMPHATIC: Denies anemia, denies enlarged lymph node Past Medical History Past Medical History: Cancer, COPD, Diabetes Mellitus, GERD/Reflux, Hyperlipidemia, Hypertension, Skin Disorder Additional Past Medical History / Comment(s): nodult on rt lung, bx cancer , mitral valve prolapse, yeast under skin folds. uses cream after bathing. seasonal allergies. History of Any Multi-Drug Resistant Organisms: None Reported Past Surgical History: Ablation, Cholecystectomy, Tonsillectomy Additional Past Surgical History / Comment(s): blood clots on skull from hitting head against wall at age 3yr, removed, colonoscopy, Additional Past Anesthesia/Blood Transfusion Reaction / Comment(s): granddaughter woke up slowly. son had elevated BP after sinus surgery Past Psychological History: Anxiety, Depression Smoking Status: Former smoker Past Alcohol Use History: None Reported Past Drug Use History: None Reported - Past Family History Father Family Medical History: No Reported History, Blood Disorder Medications and Allergies Home Medications Medication Instructions Recorded Confirmed Type Benazepril [Lotensin] 10 mg PO DAILY 11/07/15 03/04/23 History Fluticasone Nasal [place] [Flonase 2 spr EA NOSTRIL DAILY PRN 11/07/15 03/04/23 History Nasal [place]] Glimepiride [Amaryl] 2 mg PO DAILY 11/07/15 03/04/23 History LORazepam [Ativan] 1 mg PO BID PRN 11/06/22 03/04/23 History Pravastatin Sodium [Pravachol] 40 mg PO DAILY 11/06/22 03/04/23 History Montelukast [Singulair] 10 mg PO DAILY 11/20/22 03/04/23 History Budesonide/Formoterol Fumarate 1 puff INHALATION BID #1 gm 11/24/22 03/04/23 Rx [Symbicort 160-4.5 Mcg Inhaler] Ipratropium-Albuterol Nebulize 3 ml INHALATION RT-QID PRN 03/04/23 03/04/23 History [Duoneb 0.5 mg-3 mg/3 ml Soln] QUEtiapine [SEROquel] 100 mg PO HS 03/04/23 03/04/23 History Allergies Allergy/AdvReac Type Severity Reaction Status Date / Time Penicillins Allergy Rash/Hives/ Verified 03/04/23 17:53 swelling Physical Exam Vitals: Vital Signs Temp Pulse Pulse Resp BP BP Pulse Ox 03/04/23 21:10 97.8 F 87 17 115/74 94 L 03/04/23 20:58 89 18 125/80 97 03/04/23 20:06 76 03/04/23 19:52 81 03/04/23 17:21 96 03/04/23 17:13 95 03/04/23 16:45 97 18 125/95 96 03/04/23 16:07 98.5 F 100 20 146/86 93 L Intake and Output 03/04/23 03/04/23 03/05/23 14:59 22:59 06:59 Other: Weight 97.522 kg GENERAL EXAM: Alert, 62-year-old obese white female, comfortable in no apparent distress. HEAD: Normocephalic and atraumatic EYES: Normal reaction of pupils, equal size. NOSE: Clear with pink turbinates. THROAT: No erythema or exudates. NECK: No masses, no JVD. CHEST: No chest wall deformity. LUNGS: Equal air entry with expiratory wheezes heard throughout. No crackles, rhonchi, focal dullness. On room air. No conversational dyspnea or accessory muscle use.. CVS: S1 and S2 normal with no audible murmur, regular rhythm. No extra heart sounds ABDOMEN: No hepatosplenomegaly, active bowel sounds, no guarding or rigidity. SPINE: No scoliosis or deformity SKIN: No rashes CENTRAL NERVOUS SYSTEM: No focal deficits, tone is normal in all 4 extremities. EXTREMITIES: There is no peripheral edema, clubbing, or cyanosis. Peripheral pulses are intact. Results - Laboratory Findings CBC and BMP: 03/04/23 16:53 03/04/23 16:53 PT/INR, D-dimer PT 10.9 sec (10.0-12.5) 03/04/23 16:53 INR 1.0 (<1.2) 03/04/23 16:53 D-Dimer 0.34 mg/L FEU (<0.60) 03/04/23 16:53 Abnormal lab findings: Abnormal Labs 03/04/23 03/04/23 16:53 16:53 WBC 12.9 H RBC 5.67 H Hct 48.4 H Neutrophils # 9.7 H Glucose 113 H ALT 38 H - Diagnostic Findings Chest x-ray: image reviewed Assessment and Plan Assessment: Acute COPD exacerbation and possible community acquired pneumonia. Chest x-ray shows scattered nonspecific infiltrates within the right upper and lower lung ralph and left lower lung field possibly correlating for atypical pneumonia. Negative for influenza, RSV, COVID-19. Acute dyspnea, secondary to above Leukocytosis History of pulmonary adenocarcinoma status post video-assisted thorascopic right upper lobe wedge resection and lymph node dissection on 11/22/2022 History of moderate to severe chronic obstructive pulmonary disease Benign essential hypertension Hyperlipidemia Diabetes mellitus Obesity with a BMI of 36.9 kg per metered square Former tobacco dependence Plan: Patient's medications, labs, chest x-ray reviewed On room air Continue DuoNeb's around the o'clock and IV Solu-Medrol Add Symbicort inhaler Continue empiric antibiotics Negative for influenza, RSV, COVID-19 Urine Legionella antigen pending We will continue to follow I have personally seen and examined the patient, performed the documentation and the assessment and plan as written. Number of minutes spent on the visit:20 Time with Patient: Greater than 30
--- NOTE | 2023-03-05 08:13 | XR ---
EXAMINATION TYPE: XR chest 2V DATE OF EXAM: 03/05/2023 COMPARISON: 03/04/2023 HISTORY: 62-year-old female follow-up pneumonia TECHNIQUE: PA and lateral views FINDINGS: Heart normal size. Mild hyperinflation. Patchy interstitial changes persist, greatest at the left low er lung. No significant interval change. IMPRESSION: COPD with similar mild patchy interstitial infiltrates.
[2023-03-05] MEDS: IPRATROPIUM-ALBUTEROL 3 ML NEB INHALATION SCH ×4 (09:10→21:40)
[2023-03-05] MEDS: SYMBICORT 160-4.5 MCG INHALER INHALATION SCH ×2 (09:10→21:40)
[2023-03-05] MEDS: AZITHROMYCIN 500 MG TAB PO SCH (10:57)
[2023-03-05] MEDS ORDERED: IPRATROPIUM-ALBUTEROL 3 ML NEB INHALATION PRN (12:25)
[2023-03-05] MEDS ORDERED: FLUTICASONE 50MCG/SPRAY NASAL 16GM EA NOSTRIL PRN (12:25)
[2023-03-05] MEDS: LORazepam 1 MG TAB PO PRN (17:05)
[2023-03-05] MEDS: ACETAMINOPHEN TAB 500 MG TAB PO PRN (20:44)
[2023-03-05] MEDS ORDERED: QUEtiapine 100 MG TAB PO SCH (21:00)
[2023-03-05] MEDS ORDERED: SYMBICORT 160-4.5 MCG INHALER INHALATION SCH (21:00)
[2023-03-05 21:28] LABS: Glucose,Whole Blood 254 mg/dL (70-110)
[2023-03-06] MEDS: methylPREDNISolone SOD SUCCI 125 MG/2 ML VIAL IV SCH ×2 (00:11→06:09)
[2023-03-06 06:20] LABS: Glucose,Whole Blood 232 mg/dL (70-110)
[2023-03-06] MEDS: LORazepam 1 MG TAB PO PRN (08:34)
[2023-03-06] MEDS: AZITHROMYCIN 500 MG TAB PO SCH (08:34)
[2023-03-06] MEDS: ACETAMINOPHEN TAB 500 MG TAB PO PRN (08:34)
[2023-03-06 08:36] VITALS: BP 135/82; RESP 18; TEMP 98
[2023-03-06] MEDS: IPRATROPIUM-ALBUTEROL 3 ML NEB INHALATION SCH ×3 (08:58→15:49)
[2023-03-06] MEDS: SYMBICORT 160-4.5 MCG INHALER INHALATION SCH (08:58)
[2023-03-06] MEDS ORDERED: MONTELUKAST 10 MG TAB PO SCH (09:00)
[2023-03-06] MEDS ORDERED: lisinopriL 10 MG TAB PO SCH (09:00)
[2023-03-06] MEDS ORDERED: PRAVASTATIN SODIUM 40 MG TAB PO SCH (09:00)
[2023-03-06] MEDS ORDERED: DOXYCYCLINE 100 MG CAP PO SCH ×2 (09:35→21:00)
[2023-03-06 11:35] LABS: Glucose,Whole Blood 259 mg/dL (70-110)
--- NOTE | 2023-03-06 14:33 | P.PN ---
Subjective Progress Note Date: 03/06/23 I am seeing this patient in consultation today 03/05/2023 for suspected COPD exacerbation and possible community acquired pneumonia. Patient is a 62-year-old white female past medical history significant for recent diagnosis of pulmonary adenocarcinoma status/post right upper lobe wedge resection on 10/28. She also has moderate to severe chronic obstructive pulmonary disease with an FEV1 50% of predicted, hypertension, hyperlipidemia, diabetes mellitus, obesity, and quit smoking cigarettes this year. Patient presented to emergency room yesterday afternoon complaining of shortness of breath that started approximately 2 weeks ago. She's had a intermittent cough with minimal this clear sputum production. No fever. Denies sick contacts. Denies any chest pain, heart palpitations, syncope, lower extremity swelling. Chest x-ray on arrival demonstrated scattered nonspecific infiltrates within the right upper and lower lung ralph and left lower lobe. Negative for influenza, RSV, COVID-19. She is currently sitting up in bed, on room air, in no acute distress. CBC on arrival showed some mild leukocytosis with a WBC count of 12.9, hemoglobin 16, hematocrit 40.4, platelets 229. D-dimer 0.34. BMP unremarkable. Troponin less than 0.12. NT proBNP not significant elevated. Patient is empirically covered on azithromycin and Rocephin. Is also been started on a combination of DuoNeb's and IV Solu-Medrol. Appears hemodynamically stable. The patient is seen today 03/06/2023 in follow-up on the regular medical floor. She is currently sitting up in bed. Awake and alert in no acute distress. She is maintaining good O2 saturations in the 90s on room air. Chest x-ray had revealed evidence of COPD with minimal patchy basilar infiltrates. Her pro- calcitonin was 0.32. She's treated with ceftriaxone and azithromycin. Blood cultures reveal no growth. Sputum culture revealed no growth. Blood glucose 259. She is continued on DuoNeb inhalations, Pulmicort and Perforomist i nhalations, Singulair, Solu-Medrol. Objective - Vital Signs Vital signs: Vital Signs Temp 98.0 F 03/06/23 07:05 Pulse 92 03/06/23 12:31 Resp 18 03/06/23 07:05 BP 135/82 03/06/23 07:05 Pulse Ox 97 03/06/23 08:59 FiO2 Intake & Output 11/07/23 11/08/23 11/08/23 18:59 06:59 18:59 Other: # Voids 1 2 - Exam GENERAL EXAM: Alert, active, pleasant 62-year-old female, on room air, comfortable in no apparent distress. HEAD: Normocephalic. EYES: Normal reaction of pupils, equal size. NOSE: Clear with pink turbinates. THROAT: No erythema or exudates. NECK: No masses, no JVD. CHEST: No chest wall deformity. LUNGS: Equal air entry with scattered rhonchi, diminished. CVS: S1 and S2 normal with no audible murmur, regular rhythm. ABDOMEN: No hepatosplenomegaly, normal bowel sounds, no guarding or rigidity. SPINE: No scoliosis or deformity SKIN: No rashes CENTRAL NERVOUS SYSTEM: No focal deficits, tone is normal in all 4 extremities. EXTREMITIES: There is no peripheral edema. No clubbing, no cyanosis. Peripheral pulses are intact. - Labs CBC & Chem 7: 03/04/23 16:53 03/04/23 16:53 Labs: Abnormal Lab Results - Last 24 Hours (Table) 03/05/23 03/06/23 03/06/23 Range/Units 21:27 06:19 11:33 POC Glucose (mg/dL) 254 H 232 H 259 H (70-110) mg/dL Microbiology - Last 24 Hours (Table) 03/05/23 09:22 Gram Stain - Preliminary Sputum 03/04/23 16:53 Blood Culture - Preliminary Blood 03/04/23 16:53 Blood Culture - Preliminary Blood Assessment and Plan Assessment: Acute COPD exacerbation and possible community acquired pneumonia. Chest x-ray shows scattered nonspecific infiltrates within the right upper and lower lung ralph and left lower lung field possibly correlating for atypical pneumonia. Negative for influenza, RSV, COVID-19. Pro-calcitonin was 0.32. Treated with ceftriaxone and azithromycin. Acute dyspnea, secondary to above Leukocytosis History of pulmonary adenocarcinoma status post video-assisted thorascopic right upper lobe wedge resection and lymph node dissection on 11/22/2022 History of moderate to severe chronic obstructive pulmonary disease Benign essential hypertension Hyperlipidemia Diabetes mellitus Obesity with a BMI of 36.9 kg per metered square Former tobacco dependence Plan: The patient was seen and evaluated Chest x-ray, labs and medications reviewed Cleared for discharge from the pulmonary standpoint Discontinue ceftriaxone and azithromycin Initiate doxycycline 5 more days Discontinue Solu-Medrol Complete a prednisone taper Continue Symbicort Follow-up in our office in 1 week I have personally seen and examined the patient, performed the documentation and the assessment and plan as written. Number of minutes spent on the visit: 10.
--- NOTE | 2023-03-06 14:49 | PN ---
PROGRESS NOTE DATE OF SERVICE: 03/05/2023 CHIEF COMPLAINT: Pneumonitis. HISTORY OF PRESENT ILLNESS: This lady is doing a little bit better. She is not febrile. She is not particularly short of breath and she has had no chest pain. PHYSICAL EXAMINATION: LUNGS: Breath sounds are diminished at the left base. CARDIAC: Normal. ABDOMEN: Soft, nontender. IMPRESSION: 1. Left lower lobe pneumonitis. 2. History of carcinoma of the lung. PLAN: Continue with IV fluids, antibiotics, and updrafts. MMODL / IJN: [id number] /
[2023-03-06 16:04] VITALS: PULSE 88
--- NOTE | 2023-03-06 23:10 | HP ---
HISTORY AND PHYSICAL CHIEF COMPLAINT: Fever and chills, cough, shortness of breath. HISTORY OF PRESENT ILLNESS: This is another admission for this 62-year-old lady. She recently underwent a right upper lobectomy for carcinoma of lung. She came in to the office on the day of admission with fever and chills, shortness of breath, and malaise, and was found to have a left-sided pneumonitis. She was acutely ill. There was also concern that there could be something else going on such as pulmonary embolism, CHF, etc. Because these diagnoses could not be ruled in or out, she presented to the emergency room. Studies suggested that she only had a left lower lobe pneumonitis. REVIEW OF SYSTEMS: She has had no hemoptysis, syncope, confusion, abdominal pain, etc. Past medical history, family history, personal and social histories are otherwise unremarkable or noncontributory or unchanged from her recent hospitalizations. She cannot take Toradol, sulfa, penicillin, or metformin. She takes Ativan, updrafts with DuoNeb, benazepril, montelukast, Ventolin HFA, omeprazole, Seroquel, Vicodin, pravastatin, and vitamin D. She does not smoke any longer. PHYSICAL EXAMINATION: VITAL SIGNS: Blood pressure is 128/90 with a pulse of 118 and respiratory rate of 41. GENERAL: She appeared to be pale, weak and short of breath. HEAD, EARS, EYES, NOSE, MOUTH AND THROAT: Normal except for dehydration. NECK: Veins are not distended. Thyroid was not enlarged. CHEST: Demonstrated decreased breath sounds throughout. There were rales at the left base. CARDIAC: Demonstrates sinus tachycardia. ABDOMEN: Soft and nontender. EXTREMITIES: Normal. NEUROLOGICALLY: She is intact. IMPRESSION: She is admitted to the hospital with diagnoses of: 1. Left lower lobe pneumonitis. 2. Recent right upper lobectomy. 3. Rule out pulmonary embolism. 4. Rule out congestive heart failure. PLAN: 1. Bed rest. 2. IV fluids. 3. Updrafts. 4. IV antibiotics. GERBER / AJIT: [id number] /
[2023-03-07] MEDS ORDERED: predniSONE 20 MG TAB PO SCH (09:00)
--- NOTE | 2023-03-07 15:07 | DS ---
DISCHARGE SUMMARY CHIEF COMPLAINT: Fever, chills, shortness of breath. HISTORY OF PRESENT ILLNESS AND PHYSICAL EXAMINATION: Details of this lady's history and physical can be found in the initial workup. LABORATORY STUDIES: While she was in the hospital she had laboratory studies, details of which can be found in the laboratory section of her chart. COURSE IN THE HOSPITAL: After admission, she was placed at bedrest, started on intravenous fluids and started on workup which failed to demonstrate any sign of neoplasm, pulmonary emboli, cardiac disease or heart failure. Her left lower lobe pneumonitis was confirmed. She was started on treatment with updrafts and antibiotics and did well and was feeling back to normal in the 8th when she was discharged. She will go home on light activity about the house and her usual diet. She will be seen in the office in several days. FINAL DIAGNOSES: 1. Left lower lobe pneumonia. 2. History of hypertension. 3. History of nicotine abuse. 4. Status post recent right upper lobectomy. OPERATIONS: None. CONSULTATIONS: Pulmonology. CONDITION: She is improved. MMODL / MALIN: [id number] /
== END 2023-03-06 16:02 | disposition home or self-care (01) | DRG 140 ==
LOC: EC 15:54 → 4SSUR 19:03
PROVIDERS: ADMIT Family Medicine; ATTEND Family Medicine
DX: J44.0 Chronic obstructive pulmonary disease with (acute) lower respiratory infection (principal); J18.9 Pneumonia, unspecified organism; E78.5 Hyperlipidemia, unspecified; J44.1 Chronic obstructive pulmonary disease with (acute) exacerbation; I10 Essential (primary) hypertension; Z71.6 Tobacco abuse counseling; Z20.822 Contact with and (suspected) exposure to COVID-19; Z68.36 Body mass index [BMI] 36.0-36.9, adult; Z85.118 Personal history of other malignant neoplasm of bronchus and lung; Z79.84 Long term (current) use of oral hypoglycemic drugs; E66.9 Obesity, unspecified; E11.9 Type 2 diabetes mellitus without complications; I34.1 Nonrheumatic mitral (valve) prolapse; J30.2 Other seasonal allergic rhinitis; Z79.51 Long term (current) use of inhaled steroids; Z90.2 Acquired absence of lung [part of]; Z79.899 Other long term (current) drug therapy; Z88.0 Allergy status to penicillin; Z87.891 Personal history of nicotine dependence
CPT/HCPCS: 36415; 71046; 80053; 83605; 83735; 83880; 84145; 84484; 85025; 85379; 85610; 85730; 87040; 87070; 87205; 87636; 93005; 94640; 94760; 96365; 96368; 99291

== ENCOUNTER → 2023-08-06 | Outpatient (CLI) | payer MEDICARE, OTHER ==
[2023-08-06 14:55] LABS: African American GFR (CKD) 89 (>60 ml/min/1.73 sqM); Blood Urea Nitrogen 12 mg/dL (7-17); Non-African American GFR(CKD) 77 (>60 ml/min/1.73 sqM)
--- NOTE | 2023-08-06 15:49 | CT ---
EXAMINATION TYPE: CT chest w con DATE OF EXAM: 08/06/2023 COMPARISON: 11/08/2022 HISTORY: Lung Ca. CT DLP: 582.6 mGycm, Automated exposure control for dose reduction was used. CONTRAST: Performed injected with 100 mL of Isovue 300. TECHNIQUE: Axial images were obtained at 5 mm thick sections. Reconstructed images are reviewed on [employer] computer in the coronal plane. FINDINGS: Portion of the thyroid visualized is normal. There is a 1.3 cm nodular density within the medial right apex. This is smaller than the previous spi culated density at this level. No suspicious changes to suggest metastatic disease. Mild emphysematou s changes are present. No enlarged mediastinal or hilar adenopathy is evident. The ascending aorta diameter at the level o f the main pulmonary artery is 3.5 cm. The main pulmonary artery diameter at the bifurcation is 3.4 cm. There is a moderate pericardial effusion present. No pleural effusions are evident. Limited CT sections are obtained through the upper abdomen. Abdomen is essentially unremarkable. IMPRESSION: 1. Diminished size of a right apical mass may be improving lung cancer. 2. No suspicious changes since
== END | disposition home or self-care (01) ==
LOC: RADCTMAIN 14:17
PROVIDERS: ATTEND Internal Medicine Critical Care Medicine
DX: C34.90 Malignant neoplasm of unspecified part of unspecified bronchus or lung (principal)
CPT/HCPCS: 82565; 84520; 71260; 36415; Q9967

== ENCOUNTER → 2023-09-20 | Outpatient (CLI) | payer OTHER ==
--- NOTE | 2023-09-22 08:23 | PE ---
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 Images are reviewed on the computer in the coronal, a xial, and sagittal planes. Reconstructed rotating images are created on independent workstation and reviewed on the computer. A non-contrast CT is performed in conjunction with the PET scan. Glucose level 137 mg/dL CT DLP: 468 mGycm, Automated exposure control for dose reduction was used. COMPARISON: CT 08/06/2023, PET/CT 10/26/2022, FINDINGS: Mediastinal SUV mean is 1.2. Hepatic parenchyma SUV mean is 1.75. SKULL BASE AND NECK: No suspicious radiotracer activity. CHEST, MEDIASTINUM, AND HILAR REGION: * Surgical changes with atelectasis/scarring with a nodule along with streaky surgical margin measur ing 14 mm max SUV 2.5 previously 3.1. ABDOMEN AND PELVIS: No suspicious radiotracer activity. MUSCULOSKELETAL STRUCTURES: No suspicious radiotracer activity. Physiologic uptake seen throughout th e vessels. Particularly the shoulders. OTHER CT: Pulmonary hypertension. Moderate coronary artery atherosclerosis. Cholecystectomy clips are redemonstrated. A few distal colonic diverticula are seen. Small Uterine fibroid suspected IMPRESSION: Stable size of right upper lobe nodule thought to be within the surgical bed with decrease in metabol ic activity on today's exam. Continued attention on follow-up imaging.
== END | disposition home or self-care (01) ==
LOC: RADPETMAIN 07:41
PROVIDERS: ATTEND Internal Medicine Critical Care Medicine
DX: C34.90 Malignant neoplasm of unspecified part of unspecified bronchus or lung (principal); R91.1 Solitary pulmonary nodule
CPT/HCPCS: 78815

== ENCOUNTER → 2023-12-25 | Outpatient (CLI) | payer OTHER ==
--- NOTE | 2023-12-31 14:30 | MM ---
Reason for Exam: Screening (asymptomatic). Last mammogram was performed 5 year(s) and 2 month(s) ago. Patient History: Menarche at age 10. First Full-Term at age 16. Postmenopausal. Risk Values: Robyn 5 year model risk: 1.2%. NCI Lifetime model risk: 4.6%. Prior Study Comparison: 08/14/2016 Bilateral Screening Mammogram, [facility]. 09/30/2017 Bilateral Screening Mammogram, [facility]. 10/01/2018 Bilateral Screening Mammogram, [facility]. Tissue Density: There are scattered areas of fibroglandular density. Findings: Analyzed By CAD. Right breast: There is no suspicious group of microcalcifications or new suspicious mass. Left breast: There is no suspicious group of microcalcifications or new suspicious mass. Right breast: Asymmetry right breast 3.0 cm from the nipple anterior depth on the MLO view. Left breast: There is no suspicious group of microcalcifications or new suspicious mass. Overall Assessment: Incomplete: need additional imaging evaluation, BI-RAD 0 Management: Diagnostic Mammogram of the right breast. [facility] will attempt to contact patient to return for supplemental views and ultrasound if indicated. Patient should continue monthly self-breast exams. A clinical breast exam by your physician is recommended on an annual basis. This exam should not preclude additional follow-up of suspicious palpable abnormalities. Note on Robyn scores and lifetime risk: 1. A Robyn score greater than 3% is considered moderate risk. If this is the case, consider specialist referral to assess eligibility for a risk reducing agent. 2. If overall lifetime risk for the development of breast cancer is 20% or higher, the patient may qualify for future screening with alternating mammogram and breast MRI. Electronically signed and approved by: Sarkis Cooley DO
== END | disposition home or self-care (01) ==
LOC: RADMAMWWP 10:17
PROVIDERS: ATTEND Family Medicine
DX: Z12.31 Encounter for screening mammogram for malignant neoplasm of breast
CPT/HCPCS: 77063; 77067

== ENCOUNTER → 2024-01-08 | Outpatient (CLI) | payer MEDICARE, OTHER ==
--- NOTE | 2024-01-08 10:58 | MM ---
Reason for Exam: Additional evaluation requested from abnormal screening. Last screening mammogram was performed less than 1 month ago. Patient History: Menarche at age 10. First Full-Term at age 16. Postmenopausal. Risk Values: Robyn 5 year model risk: 1.2%. NCI Lifetime model risk: 4.6%. Prior Study Comparison: 08/14/2016 Bilateral Screening Mammogram, [facility]. 09/30/2017 Bilateral Screening Mammogram, [facility]. 10/01/2018 Bilateral Screening Mammogram, [facility]. 12/25/2023 Bilateral MG 3D screening mammo w/cad, [facility]. Tissue Density: Right: The breasts are heterogeneously dense, which may obscure small masses. Findings: Analyzed By CAD. No persistent mass or asymmetric density. Overall Assessment: Negative, BI-RAD 1 Management: Screening Mammogram of both breasts in 1 year. . Results were given to the patient verbally at the time of exam. Patient should continue monthly self-breast exams. A clinical breast exam by your physician is recommended on an annual basis. This exam should not preclude additional follow-up of suspicious palpable abnormalities. Note on Robyn scores and lifetime risk: 1. A Robyn score greater than 3% is considered moderate risk. If this is the case, consider specialist referral to assess eligibility for a risk reducing agent. 2. If overall lifetime risk for the development of breast cancer is 20% or higher, the patient may qualify for future screening with alternating mammogram and breast MRI. Electronically signed and approved by: Sajan Mendoza M.D. Radiologis
== END | disposition home or self-care (01) ==
LOC: RADMAMWWP 10:07
PROVIDERS: ATTEND Family Medicine
DX: R92.8 Other abnormal and inconclusive findings on diagnostic imaging of breast
CPT/HCPCS: 77061; 77065